=== PATIENT | male | born 1935 | race Caucasian/White ===

== ENCOUNTER 2016-07-23 13:18 | Observation (INO) | payer MEDICARE, MEDICAID ==
[~2016-07-23] VITALS: Ht 182.9 cm; Wt 62.6 kg
--- NOTE | 2016-07-23 14:13 | REP ---
Clinical: Nonacute cerebrovascular accident. Comparison: 10/23/2012. Findings: Age-related atrophy and microvascular ischemic changes with periventricular leukomalacia is appreciated. The ventricles and sulci are symmetric. Silver-white differentiation is maintained. There is no evidence for acute intracranial hemorrhage, mass/mass effect, pathology or infarction. No extra-axial fluid collection. Calvarium is intact. Paranasal sinuses and mastoid air cells are clear. Impression: Age related atrophy and microvascular ischemic changes. No acute intracranial hemorrhage, infarction, or mass/mass effect. Signed by Jonnie Callejas MD 07/23/2016 02:05 P
--- NOTE | 2016-07-23 14:17 | REP ---
Clinical: Cerebrovascular accident. Comparison: 10/23/2012 . Findings: The mediastinum and cardiac silhouette are stable and within normal limits for portable technique. Moderate hiatal hernia again appreciated. The lung santoyo are clear without acute consolidation, effusion, or pneumothorax. Skeletal structures are intact. Impression: Moderate hiatal hernia. No acute cardiopulmonary process appreciated. Signed by Jnonie Callejas MD 07/23/2016 02:09 P
[2016-07-23 14:43] LABS: BASO % 0.6 % (0.0-1.0); EOS % 0.3 % (0.0-3.0); LARGE UNSTAINED CELL # 0.2 K/mm3 (0.0-0.4); LARGE UNSTAINED CELL % 2.5 % (0.0-4.0); LYMPH # 0.9 K/mm3 (1.5-4.5); LYMPH % 10.4 % (24.0-44.0); MEAN CORPUSCULAR HEMOGLOBIN 31.3 pg (27.0-33.0); MEAN CORPUSCULAR HGB CONC 32.5 g/dl (32.0-36.5); MEAN CORPUSCULAR VOLUME 96.3 fl (80.0-96.0); MONO # 0.8 K/mm3 (0.0-0.8); MONO % 11.4 % (0.0-5.0); NEUTROPHILS # 5.6 K/mm3 (1.8-7.7); NEUTROPHILS % 74.9 % (36.0-66.0); PLATELET COUNT, AUTOMATED 231 k/mm3 (150-450); RED CELL DISTRIBUTION WIDTH 15.2 % (11.5-14.5); WHITE BLOOD COUNT 7.4 K/mm3 (4.0-10.0)
[2016-07-23 14:49] LABS: INR 1.7
[2016-07-23 15:08] LABS: ALBUMIN 3.7 GM/DL (3.2-5.2); ALBUMIN/GLOBULIN RATIO 0.95 (1.00-1.93); ALKALINE PHOSPHATASE 85 U/L (45-117); ALT/SGPT 33 U/L (12-78); ANION GAP 8 MEQ/L (8-16); AST/SGOT 34 U/L (15-37); BILIRUBIN,DIRECT 0.1 MG/DL (0.0-0.2); BILIRUBIN,TOTAL 0.3 MG/DL (0.2-1.0); BLOOD UREA NITROGEN 23 MG/DL (7-18); CALCIUM LEVEL 8.2 MG/DL (8.8-10.2); CARBON DIOXIDE LEVEL 29 MEQ/L (21-32); CHLORIDE LEVEL 101 MEQ/L (98-107); CREATININE FOR GFR 1.15 MG/DL (0.70-1.30); GLOMERULAR FILTRATION RATE > 60.0 (>35); GLUCOSE, FASTING 106 MG/DL (83-110); POTASSIUM SERUM 3.8 MEQ/L (3.5-5.1); SODIUM LEVEL 138 MEQ/L (136-145); TOTAL PROTEIN 7.6 GM/DL (6.4-8.2)
[2016-07-23] MEDS ORDERED: ENAL5TAB PO (16:47)
[2016-07-23] MEDS ORDERED: LANS30CA PO (16:47)
[2016-07-23] MEDS ORDERED: ZOCO40TA PO (16:47)
[2016-07-23] MEDS ORDERED: ACET50TAOT PO (16:47)
[2016-07-23] MEDS ORDERED: COUM1TAB17 PO (16:47)
[2016-07-23] MEDS ORDERED: HYDR12CA PO (16:47)
[2016-07-23] MEDS ORDERED: NS 1,000 ML IV SCH (16:53)
[2016-07-23] MEDS ORDERED: ONDANSETRON 4MG/2ML VIAL (J2405) IV PRN (17:00)
[2016-07-23] MEDS ORDERED: ACETAMINOPHEN TAB 650MG DOSE (2X325MG) PO PRN (17:00)
--- NOTE | 2016-07-23 17:14 | HPEPDOC ---
General Date of Admission 07/23/16 Chief Complaint The patient is a 81-year-old male admitted with a reason for visit of Syncope. 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 According to the patient's family who provided the extent of the history due to the patient's underlying dementia, the patient was helping out a family friend vacuuming and doing assorted chores around a facility when he suddenly became weak and less responsive. According to the family friend who previously worked as an EMT, the patient was awake the whole time and was able to move all extremities, however he appeared weak and fatigued. According to the patient's daughter, the patient has been dealing with sinus and upper respiratory tract congestion over the last 48 hours. She states that the patient was complaining of some generalized muscle aches and cramps. He was also complaining of subjective fevers and chills during this time. Apparently there are other family friends, and work associates who had similar symptoms. At baseline, the patient lives in a subsidized housing living facility, and is able to ambulate without any assistive device, and is able to complete his activities of daily living independently. The daughter states that she does drop by periodically to cook for her father and make sure things are in order, but otherwise he maintains himself independently. At this time, according to the patient's daughter, the patient has not had any complaints of chest pain, palpitations, abdominal pain, difficulty or burning with urination, or any nausea/vomiting/diarrhea. In the ER, the patient's EKG was noted to be in sinus rhythm, and a CT scan of the head as well as a chest x-ray revealed no acute abnormalities. The patient will be admitted to the hospitalist service for further evaluation and management of a near syncopal episode. Home Medications Scheduled Enalapril Maleate (Enalapril Maleate) 5 Mg Tab 5 MG PO DAILY (Reported) Lansoprazole (Lansoprazole) 30 Mg Cap 30 MG PO DAILY (Reported) Oseltamivir Phosphate (Tamiflu) 75 Mg Cap 75 MG PO BID Simvastatin - High Dose (Zocor) 40 Mg Tab 40 MG PO DAILY (Reported) Warfarin Sod (Coumadin) 5 Mg Tab 5 MG PO DAILY (Reported) Scheduled PRN Acetaminophen (Acetaminophen) 500 Mg Tab 500 MG PO PRN PAIN (Reported) Allergies Coded Allergies: No Known Allergies (Verified , 01/26/03) Past Medical History Medical History As noted in HPI Family History Significant Family History: No pertinent family hx Social History * Smoker: non-smoker Alcohol: denies Drugs: denies Social History As noted in HPI. Review of Symptoms Other systems 10 point review of systems negative unless otherwise noted in HPI Physical Examination ENT Exam: Positive: Atraumatic, Mucous membr. moist/pink Chest Exam: Positive: Clear to auscultation, Normal air movement Heart Exam: Positive: Normal S1, Normal S2, Rate Normal Telemetry: Positive: No significant arrhythmia, Sinus Abdomen Exam: Positive: Soft, Negative: Tenderness Extremity Exam: Negative: Edema, Tenderness Vital Signs As listed in EMR Laboratory Data Labs 24H Laboratory Tests 2 07/23/16 14:28: Acetaminophen Level < 2.0L, Aspartate Amino Transf (AST/SGOT) 34, Alanine Aminotransferase (ALT/SGPT) 33, Alkaline Phosphatase 85, Total Bilirubin 0.3, Direct Bilirubin 0.1, Albumin 3.7, Albumin/Globulin Ratio 0.95L, Anion Gap 8, White Blood Count 7.4, Red Blood Count 3.84L, Hemoglobin 12.0L, Hematocrit 37.0L , Mean Corpuscular Volume 96.3H, Mean Corpuscular Hemoglobin 31.3, Mean Corpuscular Hemoglobin Concent 32.5, Red Cell Distribution Width 15.2H, Platelet Count 231, Neutrophils (%) (Auto) 74.9H, Lymphocytes (%) (Auto) 10.4L, Monocytes (%) (Auto) 11.4H, Eosinophils (%) (Auto) 0.3, Basophils (%) (Auto) 0.6 , Neutrophils # (Auto) 5.6, Lymphocytes # (Auto) 0.9L, Monocytes # (Auto) 0.8, Eosinophils # (Auto) 0.0, Basophils # (Auto) 0.0, Calcium Level 8.2L, Creatine Kinase MB 3.3, Creatine Kinase MB Relative Index 1.75, Glomerular Filtration Rate > 60.0, Large Unclassified Cells # 0.2, Large Unclassified Cells % 2.5, Prothromb Time International Ratio 1.70, Prothrombin Time 20.1H, Salicylates Level < 1.7L, Thyroid Stimulating Hormone (TSH) 0.439, Total Creatine Kinase 188 , Total Protein 7.6, Troponin I < 0.02 CBC/BMP Laboratory Tests 07/23/16 14:28 Red Blood Count 3.84 L, Mean Corpuscular Volume 96.3 H, Mean Corpuscular Hemoglobin 31.3, Mean Corpuscular Hemoglobin Concent 32.5, Red Cell Distribution Width 15.2 H, Neutrophils (%) (Auto) 74.9 H, Lymphocytes (%) (Auto ) 10.4 L, Monocytes (%) (Auto) 11.4 H, Eosinophils (%) (Auto) 0.3, Basophils (% ) (Auto) 0.6, Neutrophils # (Auto) 5.6, Lymphocytes # (Auto) 0.9 L, Monocytes # (Auto) 0.8, Eosinophils # (Auto) 0.0, Basophils # (Auto) 0.0 Assessment/Plan Problems: (1) Near syncope Status: Acute Response to Treatment: Stable Problem Text: Possibly secondary to weakness/lethargy from viral upper respiratory tract infection CT scan of the head and chest x-ray unremarkable EKG noted to be in normal sinus rhythm, initial troponin negative, we'll continue to trend serial troponins 2-D echocardiogram and ultrasound of the carotids ordered Monitor on telemetry Gentle IV fluid hydration Urinalysis/urine cultures ordered, respiratory panel ordered Physical therapy consulted (2) History of CVA (cerebrovascular accident) without residual deficits Status: Chronic Response to Treatment: Stable Problem Text: On Coumadin-INR noted to be subtherapeutic at 1.7, however the patient did not take his Coumadin dose today. We will give him his dose today and recheck INR levels in the morning Continue statin (3) Hypertension Status: Chronic Response to Treatment: Stable Problem Text: We will hold the patient's hydrochlorothiazide, ALLY inhibitor as the patient does appear to be dehydrated, with a slight elevation in serum creatinine Gentle IV fluid hydration (4) Dementia Status: Chronic Response to Treatment: Stable Plan / VTE VTE Prophylaxis Ordered?: Yes DARCIE LUNA MD Jul 23, 2016 17:14
[2016-07-23 18:18] LABS: CONTROL LINE INT CTR LINE PRESENT; METHADONE URINE NEGATIVE (NEGATIVE); TRICYCLIC ANTIDEPRESS URINE NEGATIVE (NEGATIVE)
--- NOTE | 2016-07-23 18:33 | REP ---
Clinical: Near-syncopal episode. Technique: Silver scale and color Doppler evaluation using linear high frequency transducer Findings: Two-dimensional silver scale and color images demonstrate smooth intimal thickening to the common carotid arteries with small amount of mixed atheromatous plaques and the carotid bulbs extending to the internal carotid arteries bilaterally. Normal laminar flow is appreciated without turbulence or narrowing. Color Doppler interrogation demonstrates normal arterial wave patterns and velocities with no mild spectral broadening. Normal flow direction is appreciated in the bilateral vertebral arteries. RIGHT (cm/s) LEFT (cm/s) ICA peak systolic velocity 60.1 78.4 ICA diastolic velocity 24.3 29.3 ECA peak systolic velocity 134.9 110.7 CCA peak systolic velocity 80.7 86.0 ICA/CCA ratio 0.74 0.91 Impression: No hemodynamically significant areas of narrowing or stenosis appreciated. Based on set standards narrowing falls within the less than 50% range. Signed by Jonnie Callejas MD 07/23/2016 06:25 P
--- NOTE | 2016-07-23 18:49 | EDDOCDS ---
Nurse's Notes [facility] Name: Jorge Alberto Yip Age: 81 yrs Sex: Male : 1935 Arrival Date: 07/23/2016 Time: 13:18 Bed 9 Private MD: Diagnosis: Transient cerebral ischemic attack, unspecified;Unspecified dementia Presentation: 07/23 13:36 Presenting complaint: Friend states: became weak this am while cleaning \T\ [facility]. found bcj by staff sitting in chair. pt does not recall incident. denies headache chest pain SOB resp distress on arrival. denies recent fall head injury. Adult Sepsis Screening: The patient does not have new or worsening altered mentation. Patient's respiratory rate is less than 22. Systolic blood pressure is greater than 100. Patient has a qSOFA score of 0- Negative Sepsis Screen. Suicide/Homicide risk assessment- the patient denies having any suicidal and/or homicidal ideations and does not present with any other emotional, behavioral or mental health complaints. Status: Patient is not a food service substitute or dependent. Transition of care: patient was not received from another setting of care. 13:36 Acuity: ODETTE Level 3 bcj 13:36 Method Of Arrival: Ambulance bcj Triage Assessment: 13:49 General: Appears in no apparent distress, comfortable, Behavior is cooperative. Pain: bcj Denies pain. Neurological: Level of Consciousness is awake, alert, Oriented to person, place, time, Flanging Machine Operator are equal bilaterally Moves all extremities. Speech is normal, Facial symmetry appears normal, Denies weakness dizziness, numbness headache. Cardiovascular: Rhythm is sinus rhythm Chest pain is denied. Respiratory: Airway is patent Respiratory effort is even, unlabored, Respiratory pattern is regular. Derm: Skin is pink, warm & dry. Historical: - Allergies: no known allergies; - Home Meds: 1. Coumadin 5 mg Oral tab 1 tab once daily 2. Zocor 40 mg Oral tab 1 tab once daily 3. Prevacid 30 mg Oral cpDR 1 cap once daily 4. enalapril maleate 5 mg Oral tab 1 tab once daily 5. hydrochlorothiazide 12.5 mg Oral tab 1 tab once daily - PMHx: CVA; Hypertension; GERD; - PSHx: none; - Social history: Smoking status: Patient states former smoker of tobacco. No barriers to communication noted, The patient speaks fluent Pakistani, Speaks appropriately for age. - Family history: Not pertinent. - : The pt / caregiver states he / she is on anticoagulants: coumadin. Home medication list is obtained from the patient. - Exposure Risk Screening:: None identified. Screenin:35 Screening information is obtained from the patient. Fall risk: No risks identified. bcj Assistance ADL's: requires no assistance with activities of daily living. Abuse/DV Screen: The patient / caregiver reports he/she is: not in a situation that causes fear, pain or injury. Nutritional screening: No deficits noted. Advance Directives: There is no active DNR order. home support is adequate. Assessment: 14:35 General: Appears in no apparent distress, comfortable, Behavior is cooperative. Pain: bcj Denies pain. Neurological: Level of Consciousness is awake, alert, Oriented to person, place, time, Flanging Machine Operator are equal bilaterally Moves all extremities. Speech is normal, Facial symmetry appears normal, Pupils are PERRLA. Cardiovascular: Rhythm is sinus rhythm. Derm: Skin is pink, warm & dry. pale. 16:30 General: Appears in no apparent distress, comfortable, Behavior is cooperative. Pain: bcj Denies pain. Neurological: Level of Consciousness is awake, alert, Oriented to person, place, time, Speech is normal, Facial symmetry appears normal. Cardiovascular: Rhythm is sinus rhythm. Derm: Skin is pink, warm & dry. 18:29 General: Appears in no apparent distress, comfortable, Behavior is cooperative. Pain: bcj Denies pain. Neurological: Level of Consciousness is awake, alert, Oriented to person, place, time, Flanging Machine Operator are equal bilaterally Moves all extremities. Speech is normal. Cardiovascular: Rhythm is sinus rhythm. Derm: Skin is intact, Skin is pink, warm & dry. Vital Signs: 13:28 BP 151 / 78 (auto/); bcj 13:29 Pulse 66 MON; Pulse Ox 94% ; bcj 13:31 BP 151 / 78; Pulse 65; Resp 20; Temp 100.5(O); Pulse Ox 95% ; Weight 68.04 kg; Height 5 jlf ft. 2 in. (157.48 cm); Pain 0/10; 13:43 BP 120 / 68 (auto/); bcj 13:43 Pulse 66 MON; Pulse Ox 93% ; bcj 14:10 BP 147 / 73 (auto/); bcj 14:11 Pulse 66 MON; Pulse Ox 92% ; bcj 14:13 BP 138 / 69 (auto/); bcj 14:13 Pulse 66 MON; Pulse Ox 93% ; bcj 14:28 BP 142 / 79 (auto/); bcj 14:28 Pulse 66 MON; Pulse Ox 95% ; bcj 14:43 BP 127 / 67 (auto/); bcj 14:43 Pulse 68 MON; Pulse Ox 93% ; bcj 14:58 BP 127 / 70 (auto/); bcj 14:58 Pulse 68 MON; Pulse Ox 92% ; bcj 15:13 BP 135 / 75 (auto/); bcj 15:13 Pulse 68 MON; Pulse Ox 90% ; bcj 15:28 BP 142 / 78 (auto/); bcj 15:28 Pulse 68 MON; Pulse Ox 95% ; bcj 15:43 BP 142 / 76 (auto/); bcj 15:43 Pulse 68 MON; Pulse Ox 98% ; bcj 15:58 BP 139 / 72 (auto/); bcj 15:58 Pulse 66 MON; Pulse Ox 92% ; bcj 16:13 BP 148 / 72 (auto/); bcj 16:13 Pulse 68 MON; Pulse Ox 93% ; bcj 16:28 BP 145 / 73 (auto/); bcj 16:28 Pulse 68 MON; Pulse Ox 93% ; bcj 17:23 BP 144 / 75; Pulse 68; Resp 16; Temp 98.5(TE); Pulse Ox 95% on R/A; Pain 0/10; bcj 13:31 Body Mass Index 27.44 (68.04 kg, 157.48 cm) [facility] Vitals: 13:49 Glucose Measurement D-stick done by EMS FS BS 14. Log In Time N/A - ambulance arrival. j 14:35 Refer to monitor trend for complete vital signs trends. [facility] ED Course: 13:19 Patient visited by Lorena Foster Printing Machine Operator. deg 13:[address] [facility] deg 13:29 No apparent distress. Resting quietly. Awaiting bed assignment. bcj 13:29 IV is intact. bcj 13:31 Patient visited by Kaya Hammonds PCA. jlf 13:31 Patient visited by Kaya Hammonds PCA. jlf 13:31 Patient moved to [facility] 13:32 [facility] ke 13:32 Patient visited by Christiano Noe FNP. ke 13:32 Patient visited by Christiano Noe FNP. ke 13:47 Triage Initiated bcj 13:52 Patient visited by Tej Giles RN. bcj 14:11 Patient visited by Kaya Hammonds PCA. jlf 14:12 Patient visited by Kaya Hammonds PCA. jlf 14:12 EKG done. (by ED staff). Reviewed by Christiano ZHOU. jlf 14:33 CT Head Without Contrast Returned. EDMS 14:33 Chest, 1 View Returned. EDMS 14:35 No apparent distress. Resting quietly. awaiting re-evaluation by ER physician. bcj 14:35 The patient / caregiver is instructed regarding the plan of care and ED course. bcj 14:35 Maintain field IV. Site clean & dry. Gauge & site: 20ga LAC. IV. bcj 14:38 Patient visited by Tej Giles RN. bcj 14:39 PT/INR Sent. bcj 15:07 Patient visited by Kaya Hammonds PCA. jlf 15:31 [facility] Payment Agreement was scanned into [employer] and attached to record. [email or web address] 15:35 Patient visited by Christiano Noe FNP. ke 15:35 Patient name changed from Jorge Alberto\S\\S\[place]\S\ to Jorge Alberto\S\ \S\[place]. EDMS 15:51 Patient visited by Kaya Hammonds PCA. jlf 15:57 Hussein Hadley is Hospitalizing Provider. ke 16:38 Patient visited by Tej Giles RN. bcj 17:27 Patient visited by Tej Giles, PRICILLA. bcj 17:49 Patient moved to Ultrasound hgl 18:13 Patient moved to 9 hgl 18:29 No apparent distress. Resting quietly. Awaiting bed assignment. bcj 18:29 bus driver/monitor on. Pulse ox on. NIBP on. bcj 18:32 Patient visited by Tej Giles RN. bcj 18:32 No procedures done that require assistance. bcj 18:34 Duplex,carotid (complete) Returned. EDMS Order Results: Lab Order: Acetaminophen Level; SPEC'M 07/23/16 14:28 Test: ACETAMINOPHEN LEVEL; Value: < 2.0; Range: 10.0-30.0; Abnormal: Below low normal; Units: UG/ML; Status: F Lab Order: CBC with Diff; SPEC'M 07/23/16 14:28 Test: WHITE BLOOD COUNT; Value: 7.4; Range: 4.0-10.0; Units: K/mm3; Status: F Test: RED BLOOD COUNT; Value: 3.84; Range: 4.30-6.10; Abnormal: Below low normal; Units: M/mm3; Status: F Test: HEMOGLOBIN; Value: 12.0; Range: 14.0-18.0; Abnormal: Below low normal; Units: g/dl; Status: F Test: HEMATOCRIT; Value: 37.0; Range: 42.0-52.0; Abnormal: Below low normal; Units: %; Status: F Test: MEAN CORPUSCULAR VOLUME; Value: 96.3; Range: 80.0-96.0; Abnormal: Above high normal; Units: fl; Status: F Test: MEAN CORPUSCULAR HEMOGLOBIN; Value: 31.3; Range: 27.0-33.0; Units: pg; Status: F Test: MEAN CORPUSCULAR HGB CONC; Value: 32.5; Range: 32.0-36.5; Units: g/dl; Status: F Test: RED CELL DISTRIBUTION WIDTH; Value: 15.2; Range: 11.5-14.5; Abnormal: Above high normal; Units: %; Status: F Test: PLATELET COUNT, AUTOMATED; Value: 231; Range: 150-450; Units: k/mm3; Status: F Test: NEUTROPHILS %; Value: 74.9; Range: 36.0-66.0; Abnormal: Above high normal; Units: %; Status: F Test: LYMPH %; Value: 10.4; Range: 24.0-44.0; Abnormal: Below low normal; Units: %; Status: F Test: MONO %; Value: 11.4; Range: 0.0-5.0; Abnormal: Above high normal; Units: %; Status: F Test: EOS %; Value: 0.3; Range: 0.0-3.0; Units: %; Status: F Test: BASO %; Value: 0.6; Range: 0.0-1.0; Units: %; Status: F Test: LARGE UNSTAINED CELL %; Value: 2.5; Range: 0.0-4.0; Units: %; Status: F Test: NEUTROPHILS #; Value: 5.6; Range: 1.8-7.7; Units: K/mm3; Status: F Test: LYMPH #; Value: 0.9; Range: 1.5-4.5; Abnormal: Below low normal; Units: K/mm3; Status: F Test: MONO #; Value: 0.8; Range: 0.0-0.8; Units: K/mm3; Status: F Test: EOS #; Value: 0.0; Range: 0.0-0.50; Units: K/mm3; Status: F Test: BASO #; Value: 0.0; Range: 0.0-0.2; Units: K/mm3; Status: F Test: LARGE UNSTAINED CELL #; Value: 0.2; Range: 0.0-0.4; Units: K/mm3; Status: F Lab Order: Cardiac Injury Profile; SPEC'M 07/23/16 14:28 Test: CPK CREATINE PHOSPHOKINASE; Value: 188; Range: 39-308; Units: U/L; Status: F Test: CK-MB VALUE MASS; Value: 3.3; Range: 0.0-3.6; Units: NG/ML; Status: F Test: MB/CK RELATIVE INDEX; Value: 1.75; Range: < OR =4; Status: F Test Note: ; DIAGNOSIS CRITERIA MMB ng/ml Relative Index (RI) NON-AMI < or = 5 N/A SILVER ZONE > 5 < or = 4 AMI > 5 > 4 Lab Order: Drug Eval Toxicology ED Only; SPEC'M 07/23/16 17:32 Test: AMPHETAMINES LEVEL URINE; Value: NEGATIVE; Range: NEGATIVE; Status: F Test: BARBITURATES URINE; Value: NEGATIVE; Range: NEGATIVE; Status: F Test: BENZODIAZEPINES URINE; Value: NEGATIVE; Range: NEGATIVE; Status: F Test: CANNABINOIDS URINE; Value: NEGATIVE; Range: NEGATIVE; Status: F Test: COCAINE METABOLITE URINE; Value: NEGATIVE; Range: NEGATIVE; Status: F Test: METHADONE URINE; Value: NEGATIVE; Range: NEGATIVE; Status: F Test: OPIATES URINE; Value: NEGATIVE; Range: NEGATIVE; Status: F Test: TRICYCLIC ANTIDEPRESS URINE; Value: NEGATIVE; Range: NEGATIVE; Status: F Test Note: ; ALL PRESUMPTIVE POSITIVE FINDINGS ARE UNCONFIRMED NORMAL VALUES THRESHOLD IN NG/ML AMPHETAMINES 1000 METHAMPHETAMINES 1000 BARBITURATES 300 BENZODIAZEPINES 300 CANNABINOIDS (THC) 50 COCAINE METABOLITE 300 METHADONE 300 OPIATES 300 PHENCYCLIDINE 25 TRICYCLIC ANTIDEPRESSANTS 1000 RESULTS ARE FOR MEDICAL PURPOSES ONLY. ALL URINE SPECIMENS WILL BE SAVED FOR 3 DAYS. IF CONFIRMATION OF A PRESUMPTIVE POSTIVE SCREEN RESULT IS DESIRED, CALL CHEMISTRY ([phone]) AND REQUEST URINE TO BE SENT TO REFERENCE LAB. FOR A LIST OF CLOSELY RELATED COMPOUNDS PLEASE CALL THE LAB. Lab Order: Liver Profile; SPEC'M 07/23/16 14:28 Test: AST/SGOT; Value: 34; Range: 15-37; Units: U/L; Status: F Test: ALT/SGPT; Value: 33; Range: 12-78; Units: U/L; Status: F Test: ALKALINE PHOSPHATASE; Value: 85; Range: 45-117; Units: U/L; Status: F Test: BILIRUBIN,TOTAL; Value: 0.3; Range: 0.2-1.0; Units: MG/DL; Status: F Test: BILIRUBIN,DIRECT; Value: 0.1; Range: 0.0-0.2; Units: MG/DL; Status: F Test: TOTAL PROTEIN; Value: 7.6; Range: 6.4-8.2; Units: GM/DL; Status: F Test: ALBUMIN; Value: 3.7; Range: 3.2-5.2; Units: GM/DL; Status: F Test: ALBUMIN/GLOBULIN RATIO; Value: 0.95; Range: 1.00-1.93; Abnormal: Below low normal; Status: F Lab Order: MED Profile; SPEC'M 07/23/16 14:28 Test: GLUCOSE, FASTING; Value: 106; Range: 83-110; Units: MG/DL; Status: F Test: BLOOD UREA NITROGEN; Value: 23; Range: 7-18; Abnormal: Above high normal; Units: MG/DL; Status: F Test: CREATININE FOR GFR; Value: 1.15; Range: 0.70-1.30; Units: MG/DL; Status: F Test: GLOMERULAR FILTRATION RATE; Value: > 60.0; Range: >35; Status: F Test: SODIUM LEVEL; Value: 138; Range: 136-145; Units: MEQ/L; Status: F Test: POTASSIUM SERUM; Value: 3.8; Range: 3.5-5.1; Units: MEQ/L; Status: F Test: CHLORIDE LEVEL; Value: 101; Range: 98-107; Units: MEQ/L; Status: F Test: CARBON DIOXIDE LEVEL; Value: 29; Range: 21-32; Units: MEQ/L; Status: F Test: ANION GAP; Value: 8; Range: 8-16; Units: MEQ/L; Status: F Test: CALCIUM LEVEL; Value: 8.2; Range: 8.8-10.2; Abnormal: Below low normal; Units: MG/DL; Status: F Test Note: ; Units are mL/min/1.73 m2 Chronic Kidney Disease Staging per NKF: Stage I & II GFR >=60 Normal to Mildly Decreased Stage III GFR 30-59 Moderately Decreased Stage IV GFR 15-29 Severely Decreased Stage V GFR <15 Very Little GFR Left ESRD GFR <15 on BANK RUNNER Lab Order: Salicylate Level; SPEC'M 07/23/16 14:28 Test: SALICYLATE LEVEL; Value: < 1.7; Range: 5.0-30.0; Abnormal: Below low normal; Units: MG/DL; Status: F Lab Order: Thyroid Stimulating Hormone; SPEC'M 07/23/16 14:28 Test: THYROID STIMULATING HORMONE; Value: 0.439; Range: 0.358-3.740; Units: uIU/ML; Status: F Lab Order: Troponin; SPEC'M 07/23/16 14:28 Test: TROPONIN I; Value: < 0.02; Range: < 0.10; Units: NG/ML; Status: F Test Note: ; Troponin I Reference Interval for [employer] LOCI: 99th Percentile= 0.00-0.045 ng/ml Risk Stratification: <= 0.10 ng/ml Decreased Risk for Adverse Clinical Events. 0.10-1.50 ng/ml Increased Risk for Adverse Clinical Events. Evaluation of additional criterion and/or repeat testing in 2-6 hours is suggested to rule out myocardial damage. >= 1.50 ng/ml Indicative of Myocardial Injury. Lab Order: Urinalysis; SPEC'M 07/23/16 17:32 Test: APPEARANCE, URINE; Value: HAZY; Range: CLEAR; Status: F Test: COLOR, URINE; Value: YELLOW; Range: YELLOW; Status: F Test: PH,URINE; Value: 5.0; Range: 5.0-9.0; Units: UNITS; Status: F Test: SPECIFIC GRAVITY URINE AUTO; Value: 1.023; Range: 1.002-1.035; Status: F Test: PROTEIN, URINE AUTO; Value: NEGATIVE; Range: NEGATIVE; Units: mg/dL; Status: F Test: GLUCOSE, URINE (UA) AUTO; Value: NEGATIVE; Range: NEGATIVE; Units: mg/dL; Status: F Test: KETONE, URINE AUTO; Value: 1+; Range: NEGATIVE; Abnormal: Above high normal; Units: mg/dL; Status: F Test: UROBILINOGEN, URINE AUTO; Value: 2.0; Range: 0.0-2.0; Abnormal: Above high normal; Units: mg/dL; Status: F Test: BILIRUBIN, URINE AUTO; Value: NEGATIVE; Range: NEGATIVE; Status: F Test: NITRITE, URINE AUTO; Value: NEGATIVE; Range: NEGATIVE; Status: F Test: LEUKOCYTE ESTERASE, URINE AUTO; Value: NEGATIVE; Range: NEGATIVE; Status: F Test: BLOOD, URINE BLOOD; Value: 1+; Range: NEGATIVE; Abnormal: Above high normal; Status: F Test: WBC, URINE AUTO; Value: 1; Range: 0-3; Units: /HPF; Status: F Test: RBC, URINE AUTO; Value: 19; Range: 0-3; Abnormal: Above high normal; Units: /HPF; Status: F Test: BACTERIA, URINE AUTO; Value: NEGATIVE; Range: NEGATIVE; Status: F Test: SQUAMOUS EPITHELIAL CELL UR AU; Value: 0; Range: 0-6; Units: /HPF; Status: F Test: MUCUS, URINE; Value: SMALL; Range: NEGATIVE; Status: F Test: HYALINE CAST, URINE AUTO; Value: 0; Range: 0-1; Units: /LPF; Status: F Lab Order: PT/INR; SPEC'M 07/23/16 14:28 Test: PROTHROMBIN TIME; Value: 20.1; Range: 12.3-14.5; Abnormal: Above high normal; Units: SECONDS; Status: F Test: INR; Value: 1.70; Status: F Test Note: ; THERAPUTIC HUMAN INR VALUES INDICATIONS NORMAL RANGES PROPHYLAXIS/TREATMENT OF: VENOUS THROMBOSIS 2.0-3.0 PULMONARY EMBOLISM 2.0-3.0 PREVENTION OF SYSTEMIC EMBOLISM FROM: TISSUE HEART VALVES 2.0-3.0 ACUTE MYOCARDIAL INFARCTION 2.0-3.0 VALVULAR HEART DISEASE 2.0-3.0 ATRIAL FIBRILLATION 2.0-3.0 MECHANICAL VALVES(HIGH RISK) 2.5-3.5 RECURRENT MYOCARDIAL INFARCTION 2.5-3.5 Radiology Order: CT Head Without Contrast Test: CT Head Without Contrast REASON FOR EXAMINATION: CVA >4.5hrs; Clinical: Nonacute cerebrovascular accident.; ; Comparison: 10/23/2012.; ; Findings:; Age-related atrophy and microvascular ischemic changes with periventricular; leukomalacia is appreciated. The ventricles and sulci are symmetric. Silver-white; differentiation is maintained. There is no evidence for acute intracranial; hemorrhage, mass/mass effect, pathology or infarction. No extra-axial fluid; collection. Calvarium is intact. Paranasal sinuses and mastoid air cells are; clear.; ; Impression:; Age related atrophy and microvascular ischemic changes.; No acute intracranial hemorrhage, infarction, or mass/mass effect.; ; ; Signed by; Jonnie Callejas MD 07/23/2016 02:05 P; Radiology Order: Chest, 1 View Test: Chest, 1 View REASON FOR EXAMINATION: CVA >4.5hrs; Clinical: Cerebrovascular accident.; ; Comparison: 10/23/2012 .; ; Findings:; The mediastinum and cardiac silhouette are stable and within normal limits for; portable technique. Moderate hiatal hernia again appreciated. The lung santoyo; are clear without acute consolidation, effusion, or pneumothorax. Skeletal; structures are intact.; ; Impression:; Moderate hiatal hernia.; No acute cardiopulmonary process appreciated.; ; ; Signed by; Jonnie Callejas MD 07/23/2016 02:09 P; Radiology Order: Duplex,carotid (complete) Test: Duplex,carotid (complete) REASON FOR EXAMINATION: Near Syncope; Clinical: Near-syncopal episode.; ; Technique: Silver scale and color Doppler evaluation using linear high frequency; transducer; ; Findings:; Two-dimensional silver scale and color images demonstrate smooth intimal thickening; to the common carotid arteries with small amount of mixed atheromatous plaques; and the carotid bulbs extending to the internal carotid arteries bilaterally.; Normal laminar flow is appreciated without turbulence or narrowing. Color; Doppler interrogation demonstrates normal arterial wave patterns and velocities; with no mild spectral broadening. Normal flow direction is appreciated in the; bilateral vertebral arteries.; ; RIGHT (cm/s) LEFT (cm/s); ; ICA peak systolic velocity 60.1 78.4; ICA diastolic velocity 24.3 29.3; ECA peak systolic velocity 134.9 110.7; CCA peak systolic velocity 80.7 86.0; ICA/CCA ratio 0.74 0.91; ; Impression:; No hemodynamically significant areas of narrowing or stenosis appreciated.; Based on set standards narrowing falls within the less than 50% range.; ; ; Signed by; Jonnie Callejas MD 07/23/2016 06:25 P; Outcome: 15:58 Decision to Hospitalize by Provider. arben 18:29 Discharge Assessment: patient administered narcotics - no. The following High Risk [facility] Discharge criteria are identified: None. Admitted to PCU accompanied by nurse, accompanied by tech, via stretcher, on monitor. Condition: stable. CT Study completed. Ultrasound Study completed. Admission hand-off: Report Faxed. Property :Personal belongings accompany Pt. 18:48 Patient left the ED. dy Signatures: Dispatcher [employer] EDLorena Saldaña, Printing Machine Operator Unit deg Tej Giles RN RN bcj Youngs, David, RN RN dy Elsner, Karl, Willard Muse Jordain, PCA PCA jlf Sorenson, Kimberly, Reg Reg [email or web address] CLAUDETTE
--- NOTE | 2016-07-23 18:49 | EDDOCDS ---
Physician Documentation [facility] Name: Jorge Alberto Yip Age: 81 yrs Sex: Male : 1935 Arrival Date: 07/23/2016 Time: 13:18 Bed 9 Private MD: Disposition: 07/23/16 15:58 Hospitalization ordered by Hussein Hadley for Inpatient Admission. Preliminary diagnosis are Transient cerebral ischemic attack, unspecified, Unspecified dementia. - Bed requested for PCU. - Status is Inpatient Admission. dy - Condition is Stable. - Problem is an acute exacerbation. - Symptoms are unchanged. Historical: - Allergies: no known allergies; - Home Meds: 1. Coumadin 5 mg Oral tab 1 tab once daily 2. Zocor 40 mg Oral tab 1 tab once daily 3. Prevacid 30 mg Oral cpDR 1 cap once daily 4. enalapril maleate 5 mg Oral tab 1 tab once daily 5. hydrochlorothiazide 12.5 mg Oral tab 1 tab once daily - PMHx: CVA; Hypertension; GERD; - PSHx: none; - Social history: Smoking status: Patient states former smoker of tobacco. No barriers to communication noted, The patient speaks fluent Haitian, Speaks appropriately for age. - Family history: Not pertinent. - : The pt / caregiver states he / she is on anticoagulants: coumadin. Home medication list is obtained from the patient. - Exposure Risk Screening:: None identified. Vital Signs: 07/23 13:28 BP 151 / 78 (auto/); bcj 13:29 Pulse 66 MON; Pulse Ox 94% ; bcj 13:31 BP 151 / 78; Pulse 65; Resp 20; Temp 100.5(O); Pulse Ox 95% ; Weight 68.04 kg / 150 jlf lbs; Height 5 ft. 2 in. (157.48 cm); Pain 0/10; 13:43 BP 120 / 68 (auto/); bcj 13:43 Pulse 66 MON; Pulse Ox 93% ; bcj 14:10 BP 147 / 73 (auto/); bcj 14:11 Pulse 66 MON; Pulse Ox 92% ; bcj 14:13 BP 138 / 69 (auto/); bcj 14:13 Pulse 66 MON; Pulse Ox 93% ; bcj 14:28 BP 142 / 79 (auto/); bcj 14:28 Pulse 66 MON; Pulse Ox 95% ; bcj 14:43 BP 127 / 67 (auto/); bcj 14:43 Pulse 68 MON; Pulse Ox 93% ; bcj 14:58 BP 127 / 70 (auto/); bcj 14:58 Pulse 68 MON; Pulse Ox 92% ; bcj 15:13 BP 135 / 75 (auto/); bcj 15:13 Pulse 68 MON; Pulse Ox 90% ; bcj 15:28 BP 142 / 78 (auto/); bcj 15:28 Pulse 68 MON; Pulse Ox 95% ; bcj 15:43 BP 142 / 76 (auto/); bcj 15:43 Pulse 68 MON; Pulse Ox 98% ; bcj 15:58 BP 139 / 72 (auto/); bcj 15:58 Pulse 66 MON; Pulse Ox 92% ; bcj 16:13 BP 148 / 72 (auto/); bcj 16:13 Pulse 68 MON; Pulse Ox 93% ; bcj 16:28 BP 145 / 73 (auto/); bcj 16:28 Pulse 68 MON; Pulse Ox 93% ; bcj 17:23 BP 144 / 75; Pulse 68; Resp 16; Temp 98.5(TE); Pulse Ox 95% on R/A; Pain 0/10; bcj 13:31 Body Mass Index 27.44 (68.04 kg, 157.48 cm) [facility] MDM: 13:50 Stoker Erector/Pulse Ox/q 15 min VS ordered. ke 13:50 Accucheck ordered. ke 13:50 IV Saline Lock ordered. ke 13:50 Oxygen at 4L/Min NC or Home dosage ordered. ke 13:50 Rhythm Strip to chart ordered. ke 13:51 Acetaminophen Level Ordered. EDMS 13:51 CBC with Diff Ordered. EDMS 13:51 Cardiac Injury Profile Ordered. EDMS 13:51 Drug Eval Toxicology ED Only Ordered. EDMS 13:51 Liver Profile Ordered. EDMS 13:51 MED Profile Ordered. EDMS 13:52 Salicylate Level Ordered. EDMS 13:52 Thyroid Stimulating Hormone Ordered. EDMS 13:52 Troponin Ordered. EDMS 13:52 Urinalysis Ordered. EDMS 13:52 Urine Culture Ordered. EDMS 13:52 Chest, 1 View Ordered. EDMS 13:52 CT Head Without Contrast Ordered. EDMS 13:52 ECG WITH READING ER PHYS+CARDIAG ordered. EDMS 14:30 PT/INR Ordered. EDMS 15:31 Financial registration complete. [email or web address] 15:31 [facility] Payment Agreement was scanned into [employer] and attached to record. [email or web address] 15:38 Acetaminophen Level Reviewed. ke 15:38 CBC with Diff Reviewed. ke 15:38 Liver Profile Reviewed. ke 15:38 MED Profile Reviewed. ke 15:38 Salicylate Level Reviewed. ke 15:38 PT/INR Reviewed. ke 15:38 Cardiac Injury Profile Reviewed. ke 15:38 Thyroid Stimulating Hormone Reviewed. ke 15:38 Troponin Reviewed. ke 15:38 CT Head Without Contrast Reviewed. ke 15:38 Chest, 1 View Reviewed. ke 16:59 PHYSICAL THERAPY EVAL & TREAT ordered. EDMS 16:59 Duplex,carotid (complete) Ordered. EDMS 17:00 Admission / Observation Status ordered. EDMS 17:01 ECHOCARD,DOPPLER/COLOR FLOW ordered. EDMS 17:01 2 GRAM SODIUM DIET ordered. EDMS 17:01 TROPONIN Ordered. EDMS 17:01 RESPIRATORY PANEL Ordered. EDMS 17:11 BLOOD CULTURES Ordered. EDMS Signatures: Dispatcher [employer] EDMS Tej Giles, RN RN Cary Finley RN Almas Mckeon, RN RN Christiano Francis, INSPECTOR GOLF BALL INSPECTOR GOLF BALL Kristnie March, Reg Reg [email or web address] The chart was reviewed and I authenticate all verbal orders and agree with the evaluation and treatment provided.Attachments: 15:31 [facility] Payment Agreement [email or web address]
[2016-07-23 18:50] VITALS: BP 152/72
[2016-07-23 20:37] VITALS: BP 142/72
[2016-07-23] MEDS: WARFARIN SOD 5 MG TAB PO SCH (20:45)
[2016-07-23 23:27] VITALS: BP 148/64
[2016-07-24 05:11] VITALS: BP 142/67
[2016-07-24 05:22] LABS: BASO % 0.5 % (0.0-1.0); EOS % 0.2 % (0.0-3.0); LARGE UNSTAINED CELL # 0.2 K/mm3 (0.0-0.4); LARGE UNSTAINED CELL % 3.3 % (0.0-4.0); LYMPH # 1.3 K/mm3 (1.5-4.5); LYMPH % 26.3 % (24.0-44.0); MEAN CORPUSCULAR HEMOGLOBIN 31.9 pg (27.0-33.0); MEAN CORPUSCULAR HGB CONC 33.4 g/dl (32.0-36.5); MEAN CORPUSCULAR VOLUME 95.4 fl (80.0-96.0); MONO # 0.5 K/mm3 (0.0-0.8); MONO % 11.2 % (0.0-5.0); NEUTROPHILS # 2.6 K/mm3 (1.8-7.7); NEUTROPHILS % 58.4 % (36.0-66.0); PLATELET COUNT, AUTOMATED 205 k/mm3 (150-450); RED CELL DISTRIBUTION WIDTH 15.2 % (11.5-14.5); WHITE BLOOD COUNT 4.4 K/mm3 (4.0-10.0)
[2016-07-24 05:28] LABS: INR 1.69
[2016-07-24 05:38] LABS: ANION GAP 8 MEQ/L (8-16); BLOOD UREA NITROGEN 19 MG/DL (7-18); CALCIUM LEVEL 8.1 MG/DL (8.8-10.2); CARBON DIOXIDE LEVEL 26 MEQ/L (21-32); CHLORIDE LEVEL 104 MEQ/L (98-107); CREATININE FOR GFR 0.96 MG/DL (0.70-1.30); GLOMERULAR FILTRATION RATE > 60.0 (>35); GLUCOSE, FASTING 84 MG/DL (83-110); MAGNESIUM LEVEL 1.8 MG/DL (1.8-2.4); POTASSIUM SERUM 3.6 MEQ/L (3.5-5.1); SODIUM LEVEL 138 MEQ/L (136-145)
[2016-07-24 07:53] VITALS: BP 152/84
[2016-07-24] MEDS: PANTOPRAZOLE 20 MG TAB PO SCH (09:21)
[2016-07-24] MEDS: SIMVASTATIN 40 MG TAB PO SCH (09:21)
--- NOTE | 2016-07-24 10:01 | ECGEPIP ---
Stationary ECG Study [facility] - ED Test Date: 2016-07-23 Pat Name: KACY BETANCOURT Department: Room: - Gender: M Structures Assembler: : 1935 Requested By: AMANDA ZHOU Order Number: [id number] Reading MD: Claribel Monzon Measurements Intervals [place] Rate: 66 P: 47 OK: 194 QRS: 43 QRSD: 81 T: 38 QT: 370 QTc: 390 Interpretive Statements SINUS RHYTHM DELAYED R PROGRESSION LOW VOLTAGE LIMB NO PRIOR FOR COMPARISON Electronically Signed On 07-24-2016 10:01:22 EST by Claribel Monzon
[2016-07-24 12:00] VITALS: BP 136/57
[2016-07-24] MEDS: ENALAPRIL MALEATE 5 MG TAB PO SCH (12:00)
--- NOTE | 2016-07-24 12:16 | IPN ---
DATE OF SERVICE: 07/24/2016 SUBJECTIVE: The patient tells me he has no specific complaints at the present time. He can tell me his name and his date of , but otherwise he is disoriented to place, time, situation. He does not know what city he is in, what building he is in, day, month, or year, but he does want to leave the room immediately because he has to go and tend to horses. OBJECTIVE: VITAL SIGNS: Temperature 98.6, pulse 59, respiratory rate 18, blood pressure 152/84, oxygen saturation 97% on room air. GENERAL: He is an elderly man laying in bed comfortably and peacefully in no distress. HEENT: Cranial nerves II-XII are grossly intact. He is mildly disheveled. He has moist mucous membranes. No elevation of central venous pressure. CARDIOVASCULAR EXAMINATION: S1, S2. Regular. RESPIRATORY EXAMINATION: Clear. He does cough during the examination, though. It sounds wet. ABDOMINAL EXAMINATION: Benign. EXTREMITIES: No clubbing, cyanosis or edema. LABORATORY STUDIES: WBC 4.4, hemoglobin 11.3, hematocrit 33.8, platelet count 205. Chemistry panel: Sodium 138, potassium 3.6, chloride 104, bicarbonate 26, BUN 19, creatinine 0.9, magnesium 1.8. He has multiple sets of cardiac enzymes, which are negative. Thyroid stimulating hormone (TSH) within normal limits. INR 1.6. TOXICOLOGY SCREEN: Negative. MICROBIOLOGY: Blood cultures and urine cultures are pending. We did a vascular ultrasound of the carotids, which did not reveal any hemodynamically significant obstruction. He had a chest x-ray, which was no acute cardiopulmonary process, and a CT scan of the head, which revealed age-related atrophy and microvascular ischemic changes. ASSESSMENT AND PLAN: This is an 81-year-old man who has had two or three days of cough, who presented with a near-syncopal episode. PROBLEMS: 1. Cough and near syncope. The patient may be having a viral infection. He is not tachycardic or has leukocytosis. He has not had a fever, but he does have a cough. A 2D echocardiogram has been ordered. Given his near-syncopal symptoms, suspect that this is more likely related to viral infection; however, something I do find concerning is that the patient reportedly lives alone. He does have a very involved family and people visit him often and take him out every single day; however, he does live independently at the present time. Given his complete disorientation, I do hesitate to disposition him back independently. I will have him evaluated by physical therapy (PT). I will also involve [facility] ([facility]) in his care. For the time being, I will keep him in the progressive care unit while awaiting his echocardiogram results. 2. History of a cerebrovascular accident (CVA). Patient has no reported residual deficits. He is on Coumadin; however, his INR is subtherapeutic. Will continue on his Coumadin dosing. Given his advanced dementia, I question his ability to take these medications appropriately at home. Again, being on anticoagulation, near-syncopal episode and the fact that he is independent reportedly, living independently is concerning for his fall risk and I would like him evaluated by physical therapy. 3. Hypertension. The patient is becoming mildly hypertension. I will restart his angiotensin-converting enzyme (ALLY) inhibitor. His hydrochlorothiazide is currently on hold. He reportedly appeared dehydrated at the time of admission. 4. Dementia. As for the family, being disoriented is actually his baseline. 5. Deep venous thrombosis (DVT) prophylaxis. The patient is on Coumadin.
[2016-07-24 15:50] VITALS: BP 152/62
[2016-07-24] MEDS: WARFARIN SOD 5 MG TAB PO SCH (16:35)
[2016-07-24 19:47] VITALS: BP 106/63
[2016-07-25] VITALS (7 sets, daily range): BP systolic 112–168; BP diastolic 68–85
[2016-07-25 05:36] LABS: BASO % 0.5 % (0.0-1.0); EOS % 1.3 % (0.0-3.0); LARGE UNSTAINED CELL # 0.2 K/mm3 (0.0-0.4); LARGE UNSTAINED CELL % 4.1 % (0.0-4.0); LYMPH # 1.1 K/mm3 (1.5-4.5); LYMPH % 25.9 % (24.0-44.0); MEAN CORPUSCULAR HEMOGLOBIN 31.2 pg (27.0-33.0); MEAN CORPUSCULAR HGB CONC 32.5 g/dl (32.0-36.5); MEAN CORPUSCULAR VOLUME 96.2 fl (80.0-96.0); MONO # 0.4 K/mm3 (0.0-0.8); MONO % 11.5 % (0.0-5.0); NEUTROPHILS # 2.1 K/mm3 (1.8-7.7); NEUTROPHILS % 56.7 % (36.0-66.0); PLATELET COUNT, AUTOMATED 211 k/mm3 (150-450); WHITE BLOOD COUNT 3.8 K/mm3 (4.0-10.0)
[2016-07-25 05:38] LABS: INR 1.86
[2016-07-25 05:56] LABS: ANION GAP 10 MEQ/L (8-16); BLOOD UREA NITROGEN 23 MG/DL (7-18); CARBON DIOXIDE LEVEL 26 MEQ/L (21-32); CHLORIDE LEVEL 104 MEQ/L (98-107); CREATININE FOR GFR 0.98 MG/DL (0.70-1.30); GLOMERULAR FILTRATION RATE > 60.0 (>35); GLUCOSE, FASTING 93 MG/DL (83-110); POTASSIUM SERUM 3.6 MEQ/L (3.5-5.1); SODIUM LEVEL 140 MEQ/L (136-145)
[2016-07-25] MEDS: SIMVASTATIN 40 MG TAB PO SCH (09:10)
[2016-07-25] MEDS: ENALAPRIL MALEATE 5 MG TAB PO SCH (09:10)
[2016-07-25] MEDS: PANTOPRAZOLE 20 MG TAB PO SCH (09:11)
--- NOTE | 2016-07-25 11:30 | ECHO ---
DATE OF PROCEDURE: 07/24/2016 DATE OF : 1935 AGE: 81 REFERRING PROVIDER: Dr. Dann Blanca. PATIENT LOCATION: Room 3218. REASON FOR ECHOCARDIOGRAM: Syncope. 2D MEASUREMENTS: IVS: 0.94 cm LV: 4.0 cm LVPW: 0.90 cm LA: 3.4 cm Aorta: 3.2 cm IVC: 0.5 cm DOPPLER MEASUREMENTS: Peak velocity across the aortic valve: 1.9 m/s Peak velocity across the LVOT: 1.3 m/s Mitral E: 0.72 Mitral A: 1.0 Ratio 0.7 Maximum tricuspid valve velocity: 2.9 m/s 2D COMMENTS: 1. Normal left ventricular size, wall thickness and normal global left ventricular systolic function. The estimated global left ventricular systolic ejection fraction is 65% to 70%. 2. Normal left atrium. Normal right atrium and right ventricle. There was a Echogenic stricture on the lateral aspect of the left atrium that seems to be immobile in nature, size was 2.8 x 4.4 cm. 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 3. The atrial septum appeared to be normal without evidence of defect or shunt. 4. Normal aortic root. 5. No pericardial effusion seen. 6. Mildly calcified aortic valve with normal leaflet excursion. Mildly calcified mitral annulus with normal anterior mitral valve leaflet motion. Normal tricuspid valve and pulmonic valve. The proximal pulmonary artery branches were not well visualized. 7. The inferior vena cava was small, central venous pressure may be low. DOPPLER: It detects trace aortic regurgitation, trace mitral regurgitation, moderate tricuspid regurgitation and mild pulmonic regurgitation. The calculated pulmonary artery systolic pressure varies between 40 to 50 mmHg. Abnormal relaxation pattern was noted across the mitral valve leaflets consistent with grade 1 left ventricular diastolic dysfunction. IMPRESSION: 1. Normal global left ventricular systolic function. There are features of left ventricular diastolic dysfunction, grade 1. 2. Aortic valve sclerosis with trace aortic regurgitation. No significant aortic stenosis. 3. Mitral annulus calcification with trace mitral regurgitation. 4. A left atrial mass was noted on the lateral aspect of the left atrium that is most likely a left atrial myxoma. 5. Moderate tricuspid regurgitation with moderate pulmonary hypertension. 6. Mild pulmonic regurgitation. 7. The above findings of atrial myxoma was discussed with patient's hospitalist. CLAUDETTE
--- NOTE | 2016-07-25 16:27 | IPN ---
DATE: 07/25/2016 Mr. Yip is feeling well today. He has been up, walking around. No complaints of pain. No chest pain. Not particularly short of breath. He is interested in finding out about his echocardiogram results. Temperature is 96.3, pulse 65, respiratory rate 20, blood pressure 117/72, 96% on room air. Intake and output notable for a positive fluid balance of +30 mL. Weight is 62.6 kg with a body mass index of 18.7. He is awake, appropriately interactive, alert to person. Mucous membranes moist. Neck supple. Breathing is symmetrical, rested. Heart: Regular rate and rhythm. I appreciate no myxomatous plop. Abdomen: Soft, doughy, nontender. White cell count is 3.8, hemoglobin 11.4 and platelets of 211. BUN 23. Influenza swab would appear to be positive. Echocardiogram showed evidence of a left atrial mass, though to be a myxoma. ASSESSMENT: This is an 81-year-old who presented with cough and near syncope, most likely had influenza. Incidentally noted to have an atrial myxoma. PLAN: 1. For influenza, the patient will be started on Tamiflu to complete a course. 2. The patient has an atrial myxoma. I have discussed this case by phone with Dr. Ashley who has discussed the case with the family in person. They are not pursuing an aggressive course at this point. No further imaging is ordered. This has been slow growing and can be followed as an outpatient by Dr. Ashley. 3. The patient has hypertension. 4. The patient has dementia and is at his baseline.
[2016-07-25] MEDS ORDERED: OSELTAMIVIR PHOSPHATE 75 MG CAP (TAMIFLU) PO ONE (17:00)
[2016-07-25] MEDS: WARFARIN SOD 5 MG TAB PO SCH (17:11)
--- NOTE | 2016-07-25 17:21 | CR ---
DATE OF CONSULTATION: 07/25/2016 CARDIOLOGY CONSULTATION REFERRING PHYSICIAN: Dr. Almas Eduardo PRIMARY CARE PROVIDER: Jacob Hunter, Nurse Practitioner CHIEF COMPLAINT: Intermittent lightheadedness. Incidental echocardiographically documented left atrial myxoma. HISTORY: This 81-year-old father of two grown children, living in an assisted living complex in [place], [place], is followed by Jacob Hunter for essential hypertension, hypercholesterolemia and prior history of cerebrovascular accident, on oral anticoagulation. Because of senile dementia, he is monitored closely by his daughter's significant other, Cristofer. 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 Has been known to wander because of his confusion. Does follow Cristofer's direction quite well. Remote history of profound near syncope with transient visual disturbance, nausea and vomiting, shown to be triggered by acute left cerebellar infarction. 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 He was placed on oral anticoagulation without recurrent lateralizing neurological deficit, flank pain, hematuria, or blue toe syndrome. Has been completely free of cardiovascular complaint on his combination medical therapy until October 2012. Began having episodes of dizziness and falling, with prior ER evaluation for blunt head trauma. CT scan of Brain showed no more than old bilateral basal ganglia and thalamic lacunar infarcts. Last ER visit for the same was May 2016. Apparently for 24 hours prior to his current presentation, had been suffering from Flu like symptoms that affected other family members as well. Descibed frequent cough and lethargy. 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 According to Cristofer, he did appear fatigued and more sluggish but insisted on helping with the cleaning. He was doing some light vacuuming when he was observed to be leaning against the wall. He was initially nonverbal but alert and breathing with postural tone. Briefly, he was unable to follow even simple commands but within seconds walked himself to the chair to sit down. Remained free of any lateralizing neurological deficits. [facility] ambulance was summoned, and he was transported to the emergency room. By the time he arrived, he was back to his usual self. EKG monitoring while en route to the hospital showed only sinus rhythm. Initial ER vital signs showed a heart rate of 65 beats per minute, blood pressure 151/78, oxygen saturation 95% with a respiratory rate of 20 per minute, and he had a low grade temperature. He remained free of lateralizing neurological finding, but in light of his prior history of cerebrovascular accident, he was admitted to hospital for observation and underwent imaging, including a CT scan without contrast showing age-related cerebral atrophy and microvascular ischemic changes without acute intracranial hemorrhage, infarction or mass effect. Carotid ultrasound was also performed showing no hemodynamically significant obstruction. An echocardiogram was performed which showed normal left ventricular systolic function but LV diastolic dysfunction, degenerative changes of the mitral and aortic valvular apparatus without significant valvular dysfunction, moderate tricuspid regurgitation with moderate pulmonary hypertension and prominent left atrial mass measuring at least 2.8 x 4.4 cm in diameter, believed to be left atrial myxoma. In light of this latter finding, cardiology consultation was placed. CARDINAL CARDIAC SYMPTOMS: The patient's customary effort limitation is fatigue. Has never experienced any chest, jaw or arm discomfort with effort. Despite prior history of smoking, is not limited by dyspnea. No history of orthopnea. No complaints of palpitation. Has episodic positional lightheadedness but no recent fall. Events 07/23/2016, believed to be triggered by a recent upper respiratory tract infection/post viral syndrome. Remote cerebrovascular accident as described, on longstanding oral anticoagulation without recurrent lateralizing neurological deficit or other symptoms or sign of embolic phenomenon. Recent low grade temperature as mentioned. No previously documented myocardial infarction, angina or abnormal EKG. Coronary risk factors: Male gender. Age. Prior smoker. Hypercholesterolemia. Hypertension. No diabetes mellitus or symptomatic carotid vascular disease. Family history not applicable. Other past medical/surgical history: Smoking-induced COPD. Gastroesophageal reflux disease/Estrada's esophagus. Prior diverticular disease of colon. Remote Cerebellar infarcts on chronic oral anticoagulation. Senile dementia since at least 2012. Systems review: Obtained through daughter's significant other, Cristofer, who closely Monitors the patient on the day by day basis. Wears corrective lenses. Recent flulike illness as mentioned. Currently good appetite with no dysphasia, weight Loss abdominal pain or GI bleeding. No apparent urological complaints. No frequent infections or anemia. No arthritic complaints. Medications: At home he takes enalapril 5 mg daily, hydrochlorothiazide 12.5 mg daily, Zocor 40 mg daily at bedtime, Coumadin 5 mg daily, and Prevacid 30 mg Daily. Allergies: None known. Physical examination: Constitutional: Pleasantly demented, elderly male lying comfortably with the head Of the bed elevated 30. Slim, barrel chested. Wearing his street clothes. Vital signs: HR 78 bpm and regular. BP 132/80 supine, 128/76 sitting, 130/74 Standing. RR 18/m. O2 saturation 96% on room air. Weight 138 pounds. Height 72 inches. BMI 18.7 Eyes: Normal conjunctiva and lids. No pallor, icterus, palpebral petechiae Or xanthoma. ENT/mouth: No oral moisture. No central cyanosis. Neck: Trachea midline. Thyroid not enlarged. Neck veins at the level sternal angle. Respiratory: Increased anteroposterior chest diameter with slightly reduced chest excursion Good air entry with no inspiratory rales. Slight prolongation of expiration but no audible wheeze. Cardiovascular: Apical impulse not palpable. Heart sounds distant. Normal S2 splitting S4 but no S3 gallop or rub. Soft apical systolic murmur. No diastolic murmur. Normal carotid upstroke and volume. No bruits. Normal upper extremity, femoral And pedal pulses. No dependent edema or varicose veins. Abdominal aorta palpable Not aneurysmal. No bruits. GI: Scaphoid, soft, nontender with no hepatosplenomegaly. Normal bowel sounds Rectal examination not indicated. Musculoskeletal: Normal-appearing muscular strength and tone. No joint deformities. Normal spine curvature and gait. Neurologic/psych: As mentioned, somewhat demented. Disoriented to place, time and person. Eye, facial, and extremity movements appear to be symmetrical and normal. No abnormal movements. Skin: No pallor, icterus or ecchymotic lesions. Portable upright chest x-ray taken 07/23/2016 was reviewed independently and shows cardiomegaly even allowing for this portable technique. The thoracic aorta was slightly unfolded. Pulmonary vasculature did not appear to be accentuated. Well inflated lung santoyo with no localized infiltrate or pleural effusion. EKG: Tracing on admission was reviewed independently and showed sinus rhythm at 66 beats per minute with left atrial conduction disturbance, at least borderline first-degree AV block. Somewhat low voltages with RSR prime in V1 and V2 with somewhat slow precordial R-wave progression suggestive of pulmonary disease. Could not rule out a prior septal injury. No acute repolarization abnormalities. No prior tracing for comparison. Echocardiogram performed 07/24/2016 was also reviewed independently and shows: Normal left ventricular size with basal septal hypertrophy but otherwise normal LV wall thickness. Left ventricular wall motion was symmetrical and normal to hyperkinetic. Moderately dilated left atrium measuring 4.6 cm. Subtle mitral annular thickening with normal leaflet thickness and excursion and no posterior systolic buckling. Aortic valvular sclerosis but normal cusp separation. Normal aortic root size. Normal right heart chamber sizes with Doppler estimated right ventricular systolic pressure of 39 mmHg. (transvalvular gradient of 34 mmHg and estimated central venous pressure of 5 mmHg based on IVC size less than 1.0 cm with normal respiratory collapse). No pericardial effusion. Obvious large left atrial mass originating from the base of the interventricular septum with relatively wide stalk. The mass was not mobile. There appeared to be no infringement on LV inflow tract. With the asymmetrical basal septal wall thickening, there was no left ventricular outflow tract obstruction. LABORATORY DATA: Hemoglobin today 11.4 with essentially normal red blood cell indices. White blood cell count was lower limits of normal at 3.8, platelet count was normal. PT/INR today 21.5/1.9. Chemistries today confirmed electrolyte balance with BUN 23, creatinine 1.0, fasting glucose 93. Serum calcium was slightly low at 8.0 with albumin 3.7. Serum magnesium yesterday was normal at 1.8, serial Troponin I levels have been negative. Ultrasensitive TSH on admission was normal. Liver function studies were normal. Urinalysis showed trace microscopic hematuria but no pyuria or proteinuria. Toxicology screen was performed on presentation and was negative. IMPRESSION/PLAN: 1. Near syncope/syncope: A history of momentary loss of awareness but no loss of postural tone. Suspected to be triggered by his viral process and positional post activity. Currently does not have an orthostatic blood pressure drop. Has been free of any cardiac arrhythmia while being monitored here in hospital. We would not be inclined to change his chronic antihypertensive therapies beyond withholding his diuretic for the time being. 2. Left atrial myxoma: Very impressive left atrial mass that is nonmobile. Despite its impressive size, does not appear to be obstructing LV inflow. On his current oral anticoagulation, he has been free of symptomatic thromboembolic event. I have discussed the prognosis of this fairly slow growing mass frankly with the patient and his caregiver. Neither appear to be interested in any sort of invasive intervention. They intend to discuss health care proxy and advanced directives as an outpatient and complete appropriate documentation. 3. Abnormal EKG: Signs of his chest configuration, hypertension and pulmonary disease. QS pattern in V1 and V2, yet no localized wall motion abnormality on echocardiography. Has been free of any symptom or sign of myocardial ischemia. Serial Troponin I levels are negative. Would leave him on the same protective low-dose angiotensin-converting enzyme (ALLY) inhibition, simvastatin and oral anticoagulation. 4. Hypertensive heart disease (benign without heart failure): No symptoms or signs of congestion. Current blood pressure would be considered well controlled on his low-dose Vasotec alone. Perhaps his low-dose HCTZ is no longer necessary. At this point, we will not plan on following him but appreciate the opportunity to participate in his care. We would be pleased to reassess him at any time. [place] Copy: Jacob Hunter, Nurse Practitioner CLAUDETTE
--- NOTE | 2016-07-25 19:50 | EDDOCDS ---
Nurse's Notes [facility] Name: Jorge Alberto Yip Age: 81 yrs Sex: Male : 1935 Arrival Date: 07/23/2016 Time: 13:18 Bed 9 Private MD: Diagnosis: Transient cerebral ischemic attack, unspecified;Unspecified dementia Presentation: 07/23 13:36 Presenting complaint: Friend states: became weak this am while cleaning \T\ [facility]. found bcj by staff sitting in chair. pt does not recall incident. denies headache chest pain SOB resp distress on arrival. denies recent fall head injury. Adult Sepsis Screening: The patient does not have new or worsening altered mentation. Patient's respiratory rate is less than 22. Systolic blood pressure is greater than 100. Patient has a qSOFA score of 0- Negative Sepsis Screen. Suicide/Homicide risk assessment- the patient denies having any suicidal and/or homicidal ideations and does not present with any other emotional, behavioral or mental health complaints. Status: Patient is not a financial service professional or dependent. Transition of care: patient was not received from another setting of care. 13:36 Acuity: ODETTE Level 3 bcj 13:36 Method Of Arrival: Ambulance bcj Triage Assessment: 13:49 General: Appears in no apparent distress, comfortable, Behavior is cooperative. Pain: bcj Denies pain. Neurological: Level of Consciousness is awake, alert, Oriented to person, place, time, Public Health Program Manager are equal bilaterally Moves all extremities. Speech is normal, Facial symmetry appears normal, Denies weakness dizziness, numbness headache. Cardiovascular: Rhythm is sinus rhythm Chest pain is denied. Respiratory: Airway is patent Respiratory effort is even, unlabored, Respiratory pattern is regular. Derm: Skin is pink, warm & dry. Historical: - Allergies: no known allergies; - Home Meds: 1. Coumadin 5 mg Oral tab 1 tab once daily 2. Zocor 40 mg Oral tab 1 tab once daily 3. Prevacid 30 mg Oral cpDR 1 cap once daily 4. enalapril maleate 5 mg Oral tab 1 tab once daily 5. hydrochlorothiazide 12.5 mg Oral tab 1 tab once daily - PMHx: CVA; Hypertension; GERD; - PSHx: none; - Social history: Smoking status: Patient states former smoker of tobacco. No barriers to communication noted, The patient speaks fluent Tajik, Speaks appropriately for age. - Family history: Not pertinent. - : The pt / caregiver states he / she is on anticoagulants: coumadin. Home medication list is obtained from the patient. - Exposure Risk Screening:: None identified. Screenin:35 Screening information is obtained from the patient. Fall risk: No risks identified. bcj Assistance ADL's: requires no assistance with activities of daily living. Abuse/DV Screen: The patient / caregiver reports he/she is: not in a situation that causes fear, pain or injury. Nutritional screening: No deficits noted. Advance Directives: There is no active DNR order. home support is adequate. Assessment: 14:35 General: Appears in no apparent distress, comfortable, Behavior is cooperative. Pain: bcj Denies pain. Neurological: Level of Consciousness is awake, alert, Oriented to person, place, time, Public Health Program Manager are equal bilaterally Moves all extremities. Speech is normal, Facial symmetry appears normal, Pupils are PERRLA. Cardiovascular: Rhythm is sinus rhythm. Derm: Skin is pink, warm & dry. pale. 16:30 General: Appears in no apparent distress, comfortable, Behavior is cooperative. Pain: bcj Denies pain. Neurological: Level of Consciousness is awake, alert, Oriented to person, place, time, Speech is normal, Facial symmetry appears normal. Cardiovascular: Rhythm is sinus rhythm. Derm: Skin is pink, warm & dry. 18:29 General: Appears in no apparent distress, comfortable, Behavior is cooperative. Pain: bcj Denies pain. Neurological: Level of Consciousness is awake, alert, Oriented to person, place, time, Public Health Program Manager are equal bilaterally Moves all extremities. Speech is normal. Cardiovascular: Rhythm is sinus rhythm. Derm: Skin is intact, Skin is pink, warm & dry. Vital Signs: 13:28 BP 151 / 78 (auto/); bcj 13:29 Pulse 66 MON; Pulse Ox 94% ; bcj 13:31 BP 151 / 78; Pulse 65; Resp 20; Temp 100.5(O); Pulse Ox 95% ; Weight 68.04 kg; Height 5 jlf ft. 2 in. (157.48 cm); Pain 0/10; 13:43 BP 120 / 68 (auto/); bcj 13:43 Pulse 66 MON; Pulse Ox 93% ; bcj 14:10 BP 147 / 73 (auto/); bcj 14:11 Pulse 66 MON; Pulse Ox 92% ; bcj 14:13 BP 138 / 69 (auto/); bcj 14:13 Pulse 66 MON; Pulse Ox 93% ; bcj 14:28 BP 142 / 79 (auto/); bcj 14:28 Pulse 66 MON; Pulse Ox 95% ; bcj 14:43 BP 127 / 67 (auto/); bcj 14:43 Pulse 68 MON; Pulse Ox 93% ; bcj 14:58 BP 127 / 70 (auto/); bcj 14:58 Pulse 68 MON; Pulse Ox 92% ; bcj 15:13 BP 135 / 75 (auto/); bcj 15:13 Pulse 68 MON; Pulse Ox 90% ; bcj 15:28 BP 142 / 78 (auto/); bcj 15:28 Pulse 68 MON; Pulse Ox 95% ; bcj 15:43 BP 142 / 76 (auto/); bcj 15:43 Pulse 68 MON; Pulse Ox 98% ; bcj 15:58 BP 139 / 72 (auto/); bcj 15:58 Pulse 66 MON; Pulse Ox 92% ; bcj 16:13 BP 148 / 72 (auto/); bcj 16:13 Pulse 68 MON; Pulse Ox 93% ; bcj 16:28 BP 145 / 73 (auto/); bcj 16:28 Pulse 68 MON; Pulse Ox 93% ; bcj 17:23 BP 144 / 75; Pulse 68; Resp 16; Temp 98.5(TE); Pulse Ox 95% on R/A; Pain 0/10; bcj 13:31 Body Mass Index 27.44 (68.04 kg, 157.48 cm) [facility] Vitals: 13:49 Glucose Measurement D-stick done by EMS FS BS 14. Log In Time N/A - ambulance arrival. j 14:35 Refer to monitor trend for complete vital signs trends. [facility] ED Course: 13:19 Patient visited by Lorena Foster Science Interpreter. deg 13:[address] [facility] deg 13:29 No apparent distress. Resting quietly. Awaiting bed assignment. bcj 13:29 IV is intact. bcj 13:31 Patient visited by Kaya Hammonds PCA. jlf 13:31 Patient visited by Kaya Hammonds PCA. jlf 13:31 Patient moved to [facility] 13:32 Christian[facility] Noe FNP [facility]. ke 13:32 Patient visited by Christiano Noe FNP. ke 13:32 Patient visited by Christiano Noe FNP. ke 13:47 Triage Initiated bcj 13:52 Patient visited by Tej Giles RN. bcj 14:11 Patient visited by Kaya Hammonds PCA. jlf 14:12 Patient visited by Kaya Hammonds PCA. jlf 14:12 EKG done. (by ED staff). Reviewed by Christiano ZHOU. jlf 14:33 CT Head Without Contrast Returned. EDMS 14:33 Chest, 1 View Returned. EDMS 14:35 No apparent distress. Resting quietly. awaiting re-evaluation by ER physician. bcj 14:35 The patient / caregiver is instructed regarding the plan of care and ED course. bcj 14:35 Maintain field IV. Site clean & dry. Gauge & site: 20ga LAC. IV. bcj 14:38 Patient visited by Tej Giles RN. bcj 14:39 PT/INR Sent. bcj 15:07 Patient visited by Kaya Hammonds PCA. jlf 15:31 [facility] was scanned into [employer]ep[employer] and attached to record. [email or web address] 15:35 Patient visited by Christiano Noe FNP. ke 15:35 Patient name changed from Jorge Alberto\S\\S\[place]\S\ to Jorge Alberto\S\ \S\[place]. EDMS 15:51 Patient visited by Kaya Hammonds PCA. jlf 15:57 Hussein Hadley is Hospitalizing Provider. ke 16:38 Patient visited by Tej Giles RN. bcj 17:27 Patient visited by Tej Giles RN. bcj 17:49 Patient moved to Ultrasound hgl 18:13 Patient moved to 9 hgl 18:29 No apparent distress. Resting quietly. Awaiting bed assignment. bcj 18:29 nurse monitoring on. Pulse ox on. NIBP on. bcj 18:32 Patient visited by Tej Giles RN. bcj 18:32 No procedures done that require assistance. bcj 18:34 Duplex,carotid (complete) Returned. EDMS 07/24 06:39 T-Sheet-- Draft Copy was scanned into [employer]ep[employer] and attached to record. hs2 12:24 ECG/EKG was scanned into [employer]ep[employer] and attached to record. gb Order Results: Lab Order: Acetaminophen Level; SPEC'M 07/23/16 14:28 Test: ACETAMINOPHEN LEVEL; Value: < 2.0; Range: 10.0-30.0; Abnormal: Below low normal; Units: UG/ML; Status: F Lab Order: CBC with Diff; SPEC'M 07/23/16 14:28 Test: WHITE BLOOD COUNT; Value: 7.4; Range: 4.0-10.0; Units: K/mm3; Status: F Test: RED BLOOD COUNT; Value: 3.84; Range: 4.30-6.10; Abnormal: Below low normal; Units: M/mm3; Status: F Test: HEMOGLOBIN; Value: 12.0; Range: 14.0-18.0; Abnormal: Below low normal; Units: g/dl; Status: F Test: HEMATOCRIT; Value: 37.0; Range: 42.0-52.0; Abnormal: Below low normal; Units: %; Status: F Test: MEAN CORPUSCULAR VOLUME; Value: 96.3; Range: 80.0-96.0; Abnormal: Above high normal; Units: fl; Status: F Test: MEAN CORPUSCULAR HEMOGLOBIN; Value: 31.3; Range: 27.0-33.0; Units: pg; Status: F Test: MEAN CORPUSCULAR HGB CONC; Value: 32.5; Range: 32.0-36.5; Units: g/dl; Status: F Test: RED CELL DISTRIBUTION WIDTH; Value: 15.2; Range: 11.5-14.5; Abnormal: Above high normal; Units: %; Status: F Test: PLATELET COUNT, AUTOMATED; Value: 231; Range: 150-450; Units: k/mm3; Status: F Test: NEUTROPHILS %; Value: 74.9; Range: 36.0-66.0; Abnormal: Above high normal; Units: %; Status: F Test: LYMPH %; Value: 10.4; Range: 24.0-44.0; Abnormal: Below low normal; Units: %; Status: F Test: MONO %; Value: 11.4; Range: 0.0-5.0; Abnormal: Above high normal; Units: %; Status: F Test: EOS %; Value: 0.3; Range: 0.0-3.0; Units: %; Status: F Test: BASO %; Value: 0.6; Range: 0.0-1.0; Units: %; Status: F Test: LARGE UNSTAINED CELL %; Value: 2.5; Range: 0.0-4.0; Units: %; Status: F Test: NEUTROPHILS #; Value: 5.6; Range: 1.8-7.7; Units: K/mm3; Status: F Test: LYMPH #; Value: 0.9; Range: 1.5-4.5; Abnormal: Below low normal; Units: K/mm3; Status: F Test: MONO #; Value: 0.8; Range: 0.0-0.8; Units: K/mm3; Status: F Test: EOS #; Value: 0.0; Range: 0.0-0.50; Units: K/mm3; Status: F Test: BASO #; Value: 0.0; Range: 0.0-0.2; Units: K/mm3; Status: F Test: LARGE UNSTAINED CELL #; Value: 0.2; Range: 0.0-0.4; Units: K/mm3; Status: F Lab Order: Cardiac Injury Profile; SPEC'M 07/23/16 14:28 Test: CPK CREATINE PHOSPHOKINASE; Value: 188; Range: 39-308; Units: U/L; Status: F Test: CK-MB VALUE MASS; Value: 3.3; Range: 0.0-3.6; Units: NG/ML; Status: F Test: MB/CK RELATIVE INDEX; Value: 1.75; Range: < OR =4; Status: F Test Note: ; DIAGNOSIS CRITERIA MMB ng/ml Relative Index (RI) NON-AMI < or = 5 N/A SILVER ZONE > 5 < or = 4 AMI > 5 > 4 Lab Order: Drug Eval Toxicology ED Only; SPEC'M 07/23/16 17:32 Test: AMPHETAMINES LEVEL URINE; Value: NEGATIVE; Range: NEGATIVE; Status: F Test: BARBITURATES URINE; Value: NEGATIVE; Range: NEGATIVE; Status: F Test: BENZODIAZEPINES URINE; Value: NEGATIVE; Range: NEGATIVE; Status: F Test: CANNABINOIDS URINE; Value: NEGATIVE; Range: NEGATIVE; Status: F Test: COCAINE METABOLITE URINE; Value: NEGATIVE; Range: NEGATIVE; Status: F Test: METHADONE URINE; Value: NEGATIVE; Range: NEGATIVE; Status: F Test: OPIATES URINE; Value: NEGATIVE; Range: NEGATIVE; Status: F Test: TRICYCLIC ANTIDEPRESS URINE; Value: NEGATIVE; Range: NEGATIVE; Status: F Test Note: ; ALL PRESUMPTIVE POSITIVE FINDINGS ARE UNCONFIRMED NORMAL VALUES THRESHOLD IN NG/ML AMPHETAMINES 1000 METHAMPHETAMINES 1000 BARBITURATES 300 BENZODIAZEPINES 300 CANNABINOIDS (THC) 50 COCAINE METABOLITE 300 METHADONE 300 OPIATES 300 PHENCYCLIDINE 25 TRICYCLIC ANTIDEPRESSANTS 1000 RESULTS ARE FOR MEDICAL PURPOSES ONLY. ALL URINE SPECIMENS WILL BE SAVED FOR 3 DAYS. IF CONFIRMATION OF A PRESUMPTIVE POSTIVE SCREEN RESULT IS DESIRED, CALL CHEMISTRY ([phone]) AND REQUEST URINE TO BE SENT TO REFERENCE LAB. FOR A LIST OF CLOSELY RELATED COMPOUNDS PLEASE CALL THE LAB. Lab Order: Liver Profile; SPEC'M 07/23/16 14:28 Test: AST/SGOT; Value: 34; Range: 15-37; Units: U/L; Status: F Test: ALT/SGPT; Value: 33; Range: 12-78; Units: U/L; Status: F Test: ALKALINE PHOSPHATASE; Value: 85; Range: 45-117; Units: U/L; Status: F Test: BILIRUBIN,TOTAL; Value: 0.3; Range: 0.2-1.0; Units: MG/DL; Status: F Test: BILIRUBIN,DIRECT; Value: 0.1; Range: 0.0-0.2; Units: MG/DL; Status: F Test: TOTAL PROTEIN; Value: 7.6; Range: 6.4-8.2; Units: GM/DL; Status: F Test: ALBUMIN; Value: 3.7; Range: 3.2-5.2; Units: GM/DL; Status: F Test: ALBUMIN/GLOBULIN RATIO; Value: 0.95; Range: 1.00-1.93; Abnormal: Below low normal; Status: F Lab Order: MED Profile; SPEC'M 07/23/16 14:28 Test: GLUCOSE, FASTING; Value: 106; Range: 83-110; Units: MG/DL; Status: F Test: BLOOD UREA NITROGEN; Value: 23; Range: 7-18; Abnormal: Above high normal; Units: MG/DL; Status: F Test: CREATININE FOR GFR; Value: 1.15; Range: 0.70-1.30; Units: MG/DL; Status: F Test: GLOMERULAR FILTRATION RATE; Value: > 60.0; Range: >35; Status: F Test: SODIUM LEVEL; Value: 138; Range: 136-145; Units: MEQ/L; Status: F Test: POTASSIUM SERUM; Value: 3.8; Range: 3.5-5.1; Units: MEQ/L; Status: F Test: CHLORIDE LEVEL; Value: 101; Range: 98-107; Units: MEQ/L; Status: F Test: CARBON DIOXIDE LEVEL; Value: 29; Range: 21-32; Units: MEQ/L; Status: F Test: ANION GAP; Value: 8; Range: 8-16; Units: MEQ/L; Status: F Test: CALCIUM LEVEL; Value: 8.2; Range: 8.8-10.2; Abnormal: Below low normal; Units: MG/DL; Status: F Test Note: ; Units are mL/min/1.73 m2 Chronic Kidney Disease Staging per NKF: Stage I & II GFR >=60 Normal to Mildly Decreased Stage III GFR 30-59 Moderately Decreased Stage IV GFR 15-29 Severely Decreased Stage V GFR <15 Very Little GFR Left ESRD GFR <15 on SCENARIO WRITER Lab Order: Salicylate Level; SPEC'M 07/23/16 14:28 Test: SALICYLATE LEVEL; Value: < 1.7; Range: 5.0-30.0; Abnormal: Below low normal; Units: MG/DL; Status: F Lab Order: Thyroid Stimulating Hormone; SPEC'M 07/23/16 14:28 Test: THYROID STIMULATING HORMONE; Value: 0.439; Range: 0.358-3.740; Units: uIU/ML; Status: F Lab Order: Troponin; SPEC'M 07/23/16 14:28 Test: TROPONIN I; Value: < 0.02; Range: < 0.10; Units: NG/ML; Status: F Test Note: ; Troponin I Reference Interval for [employer]* LOCI: 99th Percentile= 0.00-0.045 ng/ml Risk Stratification: <= 0.10 ng/ml Decreased Risk for Adverse Clinical Events. 0.10-1.50 ng/ml Increased Risk for Adverse Clinical Events. Evaluation of additional criterion and/or repeat testing in 2-6 hours is suggested to rule out myocardial damage. >= 1.50 ng/ml Indicative of Myocardial Injury. Lab Order: Urinalysis; SPEC'M 07/23/16 17:32 Test: APPEARANCE, URINE; Value: HAZY; Range: CLEAR; Status: F Test: COLOR, URINE; Value: YELLOW; Range: YELLOW; Status: F Test: PH,URINE; Value: 5.0; Range: 5.0-9.0; Units: UNITS; Status: F Test: SPECIFIC GRAVITY URINE AUTO; Value: 1.023; Range: 1.002-1.035; Status: F Test: PROTEIN, URINE AUTO; Value: NEGATIVE; Range: NEGATIVE; Units: mg/dL; Status: F Test: GLUCOSE, URINE (UA) AUTO; Value: NEGATIVE; Range: NEGATIVE; Units: mg/dL; Status: F Test: KETONE, URINE AUTO; Value: 1+; Range: NEGATIVE; Abnormal: Above high normal; Units: mg/dL; Status: F Test: UROBILINOGEN, URINE AUTO; Value: 2.0; Range: 0.0-2.0; Abnormal: Above high normal; Units: mg/dL; Status: F Test: BILIRUBIN, URINE AUTO; Value: NEGATIVE; Range: NEGATIVE; Status: F Test: NITRITE, URINE AUTO; Value: NEGATIVE; Range: NEGATIVE; Status: F Test: LEUKOCYTE ESTERASE, URINE AUTO; Value: NEGATIVE; Range: NEGATIVE; Status: F Test: BLOOD, URINE BLOOD; Value: 1+; Range: NEGATIVE; Abnormal: Above high normal; Status: F Test: WBC, URINE AUTO; Value: 1; Range: 0-3; Units: /HPF; Status: F Test: RBC, URINE AUTO; Value: 19; Range: 0-3; Abnormal: Above high normal; Units: /HPF; Status: F Test: BACTERIA, URINE AUTO; Value: NEGATIVE; Range: NEGATIVE; Status: F Test: SQUAMOUS EPITHELIAL CELL UR AU; Value: 0; Range: 0-6; Units: /HPF; Status: F Test: MUCUS, URINE; Value: SMALL; Range: NEGATIVE; Status: F Test: HYALINE CAST, URINE AUTO; Value: 0; Range: 0-1; Units: /LPF; Status: F Lab Order: PT/INR; SPEC'M 07/23/16 14:28 Test: PROTHROMBIN TIME; Value: 20.1; Range: 12.3-14.5; Abnormal: Above high normal; Units: SECONDS; Status: F Test: INR; Value: 1.70; Status: F Test Note: ; THERAPUTIC HUMAN INR VALUES INDICATIONS NORMAL RANGES PROPHYLAXIS/TREATMENT OF: VENOUS THROMBOSIS 2.0-3.0 PULMONARY EMBOLISM 2.0-3.0 PREVENTION OF SYSTEMIC EMBOLISM FROM: TISSUE HEART VALVES 2.0-3.0 ACUTE MYOCARDIAL INFARCTION 2.0-3.0 VALVULAR HEART DISEASE 2.0-3.0 ATRIAL FIBRILLATION 2.0-3.0 MECHANICAL VALVES(HIGH RISK) 2.5-3.5 RECURRENT MYOCARDIAL INFARCTION 2.5-3.5 Radiology Order: CT Head Without Contrast Test: CT Head Without Contrast REASON FOR EXAMINATION: CVA >4.5hrs; Clinical: Nonacute cerebrovascular accident.; ; Comparison: 10/23/2012.; ; Findings:; Age-related atrophy and microvascular ischemic changes with periventricular; leukomalacia is appreciated. The ventricles and sulci are symmetric. Silver-white; differentiation is maintained. There is no evidence for acute intracranial; hemorrhage, mass/mass effect, pathology or infarction. No extra-axial fluid; collection. Calvarium is intact. Paranasal sinuses and mastoid air cells are; clear.; ; Impression:; Age related atrophy and microvascular ischemic changes.; No acute intracranial hemorrhage, infarction, or mass/mass effect.; ; ; Signed by; Jonnie Callejas MD 07/23/2016 02:05 P; Radiology Order: Chest, 1 View Test: Chest, 1 View REASON FOR EXAMINATION: CVA >4.5hrs; Clinical: Cerebrovascular accident.; ; Comparison: 10/23/2012 .; ; Findings:; The mediastinum and cardiac silhouette are stable and within normal limits for; portable technique. Moderate hiatal hernia again appreciated. The lung santoyo; are clear without acute consolidation, effusion, or pneumothorax. Skeletal; structures are intact.; ; Impression:; Moderate hiatal hernia.; No acute cardiopulmonary process appreciated.; ; ; Signed by; Jonnie Callejas MD 07/23/2016 02:09 P; Radiology Order: Duplex,carotid (complete) Test: Duplex,carotid (complete) REASON FOR EXAMINATION: Near Syncope; Clinical: Near-syncopal episode.; ; Technique: Silver scale and color Doppler evaluation using linear high frequency; transducer; ; Findings:; Two-dimensional silver scale and color images demonstrate smooth intimal thickening; to the common carotid arteries with small amount of mixed atheromatous plaques; and the carotid bulbs extending to the internal carotid arteries bilaterally.; Normal laminar flow is appreciated without turbulence or narrowing. Color; Doppler interrogation demonstrates normal arterial wave patterns and velocities; with no mild spectral broadening. Normal flow direction is appreciated in the; bilateral vertebral arteries.; ; RIGHT (cm/s) LEFT (cm/s); ; ICA peak systolic velocity 60.1 78.4; ICA diastolic velocity 24.3 29.3; ECA peak systolic velocity 134.9 110.7; CCA peak systolic velocity 80.7 86.0; ICA/CCA ratio 0.74 0.91; ; Impression:; No hemodynamically significant areas of narrowing or stenosis appreciated.; Based on set standards narrowing falls within the less than 50% range.; ; ; Signed by; Jonnie Callejas MD 07/23/2016 06:25 P; Outcome: 07/23 15:58 Decision to Hospitalize by Provider. arben 18:29 Discharge Assessment: patient administered narcotics - no. The following High Risk [facility] Discharge criteria are identified: None. Admitted to PCU accompanied by nurse, accompanied by tech, via stretcher, on monitor. Condition: stable. CT Study completed. Ultrasound Study completed. Admission hand-off: Report Faxed. Property :Personal belongings accompany Pt. 18:48 Patient left the ED. dy Signatures: Dispatcher [employer] EDLorena Saldaña, Science Interpreter Unit deg Tej Giles, RN RN Aleyda Cintron, Reg Reg Almas Petersen, RN Christiano Mann, GOLDBEATER GOLDBEATER Willard Gong Jordain, HAYDE DISASTER DIRECTOR Kristine Morelos, Reg Reg [email or web address] Sarah Rausch, Reg Reg hs2 Chart Complete MTDD
--- NOTE | 2016-07-25 19:50 | EDDOCDS ---
Physician Documentation [facility] Name: Jorge Alberto Yip Age: 81 yrs Sex: Male : 1935 Arrival Date: 07/23/2016 Time: 13:18 Bed 9 Private MD: Disposition: 07/23/16 15:58 Hospitalization ordered by Hussein Hadley for Inpatient Admission. Preliminary diagnosis are Transient cerebral ischemic attack, unspecified, Unspecified dementia. - Bed requested for PCU. - Status is Inpatient Admission. dy - Condition is Stable. - Problem is an acute exacerbation. - Symptoms are unchanged. Historical: - Allergies: no known allergies; - Home Meds: 1. Coumadin 5 mg Oral tab 1 tab once daily 2. Zocor 40 mg Oral tab 1 tab once daily 3. Prevacid 30 mg Oral cpDR 1 cap once daily 4. enalapril maleate 5 mg Oral tab 1 tab once daily 5. hydrochlorothiazide 12.5 mg Oral tab 1 tab once daily - PMHx: CVA; Hypertension; GERD; - PSHx: none; - Social history: Smoking status: Patient states former smoker of tobacco. No barriers to communication noted, The patient speaks fluent Vietnamese, Speaks appropriately for age. - Family history: Not pertinent. - : The pt / caregiver states he / she is on anticoagulants: coumadin. Home medication list is obtained from the patient. - Exposure Risk Screening:: None identified. Vital Signs: 07/23 13:28 BP 151 / 78 (auto/); bcj 13:29 Pulse 66 MON; Pulse Ox 94% ; bcj 13:31 BP 151 / 78; Pulse 65; Resp 20; Temp 100.5(O); Pulse Ox 95% ; Weight 68.04 kg / 150 jlf lbs; Height 5 ft. 2 in. (157.48 cm); Pain 0/10; 13:43 BP 120 / 68 (auto/); bcj 13:43 Pulse 66 MON; Pulse Ox 93% ; bcj 14:10 BP 147 / 73 (auto/); bcj 14:11 Pulse 66 MON; Pulse Ox 92% ; bcj 14:13 BP 138 / 69 (auto/); bcj 14:13 Pulse 66 MON; Pulse Ox 93% ; bcj 14:28 BP 142 / 79 (auto/); bcj 14:28 Pulse 66 MON; Pulse Ox 95% ; bcj 14:43 BP 127 / 67 (auto/); bcj 14:43 Pulse 68 MON; Pulse Ox 93% ; bcj 14:58 BP 127 / 70 (auto/); bcj 14:58 Pulse 68 MON; Pulse Ox 92% ; bcj 15:13 BP 135 / 75 (auto/); bcj 15:13 Pulse 68 MON; Pulse Ox 90% ; bcj 15:28 BP 142 / 78 (auto/); bcj 15:28 Pulse 68 MON; Pulse Ox 95% ; bcj 15:43 BP 142 / 76 (auto/); bcj 15:43 Pulse 68 MON; Pulse Ox 98% ; bcj 15:58 BP 139 / 72 (auto/); bcj 15:58 Pulse 66 MON; Pulse Ox 92% ; bcj 16:13 BP 148 / 72 (auto/); bcj 16:13 Pulse 68 MON; Pulse Ox 93% ; bcj 16:28 BP 145 / 73 (auto/); bcj 16:28 Pulse 68 MON; Pulse Ox 93% ; bcj 17:23 BP 144 / 75; Pulse 68; Resp 16; Temp 98.5(TE); Pulse Ox 95% on R/A; Pain 0/10; bcj 13:31 Body Mass Index 27.44 (68.04 kg, 157.48 cm) [facility] MDM: 13:50 Laser Engineer/Pulse Ox/q 15 min VS ordered. ke 13:50 Accucheck ordered. ke 13:50 IV Saline Lock ordered. ke 13:50 Oxygen at 4L/Min NC or Home dosage ordered. ke 13:50 Rhythm Strip to chart ordered. ke 13:51 Acetaminophen Level Ordered. EDMS 13:51 CBC with Diff Ordered. EDMS 13:51 Cardiac Injury Profile Ordered. EDMS 13:51 Drug Eval Toxicology ED Only Ordered. EDMS 13:51 Liver Profile Ordered. EDMS 13:51 MED Profile Ordered. EDMS 13:52 Salicylate Level Ordered. EDMS 13:52 Thyroid Stimulating Hormone Ordered. EDMS 13:52 Troponin Ordered. EDMS 13:52 Urinalysis Ordered. EDMS 13:52 Urine Culture Ordered. EDMS 13:52 Chest, 1 View Ordered. EDMS 13:52 CT Head Without Contrast Ordered. EDMS 13:52 ECG WITH READING ER PHYS+CARDIAG ordered. EDMS 14:30 PT/INR Ordered. EDMS 15:31 Financial registration complete. [email or web address] 15:31 [facility] Payment Agreement was scanned into [employer] and attached to record. [email or web address] 15:38 Acetaminophen Level Reviewed. ke 15:38 CBC with Diff Reviewed. ke 15:38 Liver Profile Reviewed. ke 15:38 MED Profile Reviewed. ke 15:38 Salicylate Level Reviewed. ke 15:38 PT/INR Reviewed. ke 15:38 Cardiac Injury Profile Reviewed. ke 15:38 Thyroid Stimulating Hormone Reviewed. ke 15:38 Troponin Reviewed. ke 15:38 CT Head Without Contrast Reviewed. ke 15:38 Chest, 1 View Reviewed. ke 16:59 PHYSICAL THERAPY EVAL & TREAT ordered. EDMS 16:59 Duplex,carotid (complete) Ordered. EDMS 17:00 Admission / Observation Status ordered. EDMS 17:01 ECHOCARD,DOPPLER/COLOR FLOW ordered. EDMS 17:01 2 GRAM SODIUM DIET ordered. EDMS 17:01 TROPONIN Ordered. EDMS 17:01 RESPIRATORY PANEL Ordered. EDMS 17:11 BLOOD CULTURES Ordered. EDMS 07/24 06:39 T-Sheet-- Draft Copy was scanned into [employer] and attached to record. hs2 12:24 ECG/EKG was scanned into [employer] and attached to record. gb Signatures: Dispatcher [employer] EDTej Gutierrez, RN RN Cary Finley RN Aleyda Arciniega, Reg Reg gb Almas Machado, RN Christiano Mann, TWISTER OPERATOR TWISTER OPERATOR Kristine March, Reg Reg [email or web address] Sarah Rausch, Reg Reg hs2 The chart was reviewed and I authenticate all verbal orders and agree with the evaluation and treatment provided.Attachments: 07/23 15:31 [facility] Payment Agreement [email or web address] 07/24 06:39 T-Sheet-- Draft Copy hs2 12:24 ECG/EKG gb Chart Complete MTDD
--- NOTE | 2016-07-25 19:50 | EDDOCDS ---
Physician Documentation [facility] Name: Jorge Alberto Yip Age: 81 yrs Sex: Male : 1935 Arrival Date: 07/23/2016 Time: 13:18 Bed 9 Private MD: Disposition: 07/23/16 15:58 Hospitalization ordered by Hussein Hadley for Inpatient Admission. Preliminary diagnosis are Transient cerebral ischemic attack, unspecified, Unspecified dementia. - Bed requested for PCU. - Status is Inpatient Admission. dy - Condition is Stable. - Problem is an acute exacerbation. - Symptoms are unchanged. Historical: - Allergies: no known allergies; - Home Meds: 1. Coumadin 5 mg Oral tab 1 tab once daily 2. Zocor 40 mg Oral tab 1 tab once daily 3. Prevacid 30 mg Oral cpDR 1 cap once daily 4. enalapril maleate 5 mg Oral tab 1 tab once daily 5. hydrochlorothiazide 12.5 mg Oral tab 1 tab once daily - PMHx: CVA; Hypertension; GERD; - PSHx: none; - Social history: Smoking status: Patient states former smoker of tobacco. No barriers to communication noted, The patient speaks fluent Burmese, Speaks appropriately for age. - Family history: Not pertinent. - : The pt / caregiver states he / she is on anticoagulants: coumadin. Home medication list is obtained from the patient. - Exposure Risk Screening:: None identified. Vital Signs: 07/23 13:28 BP 151 / 78 (auto/); bcj 13:29 Pulse 66 MON; Pulse Ox 94% ; bcj 13:31 BP 151 / 78; Pulse 65; Resp 20; Temp 100.5(O); Pulse Ox 95% ; Weight 68.04 kg / 150 jlf lbs; Height 5 ft. 2 in. (157.48 cm); Pain 0/10; 13:43 BP 120 / 68 (auto/); bcj 13:43 Pulse 66 MON; Pulse Ox 93% ; bcj 14:10 BP 147 / 73 (auto/); bcj 14:11 Pulse 66 MON; Pulse Ox 92% ; bcj 14:13 BP 138 / 69 (auto/); bcj 14:13 Pulse 66 MON; Pulse Ox 93% ; bcj 14:28 BP 142 / 79 (auto/); bcj 14:28 Pulse 66 MON; Pulse Ox 95% ; bcj 14:43 BP 127 / 67 (auto/); bcj 14:43 Pulse 68 MON; Pulse Ox 93% ; bcj 14:58 BP 127 / 70 (auto/); bcj 14:58 Pulse 68 MON; Pulse Ox 92% ; bcj 15:13 BP 135 / 75 (auto/); bcj 15:13 Pulse 68 MON; Pulse Ox 90% ; bcj 15:28 BP 142 / 78 (auto/); bcj 15:28 Pulse 68 MON; Pulse Ox 95% ; bcj 15:43 BP 142 / 76 (auto/); bcj 15:43 Pulse 68 MON; Pulse Ox 98% ; bcj 15:58 BP 139 / 72 (auto/); bcj 15:58 Pulse 66 MON; Pulse Ox 92% ; bcj 16:13 BP 148 / 72 (auto/); bcj 16:13 Pulse 68 MON; Pulse Ox 93% ; bcj 16:28 BP 145 / 73 (auto/); bcj 16:28 Pulse 68 MON; Pulse Ox 93% ; bcj 17:23 BP 144 / 75; Pulse 68; Resp 16; Temp 98.5(TE); Pulse Ox 95% on R/A; Pain 0/10; bcj 13:31 Body Mass Index 27.44 (68.04 kg, 157.48 cm) [facility] MDM: 13:50 Sales And Service Associate/Pulse Ox/q 15 min VS ordered. ke 13:50 Accucheck ordered. ke 13:50 IV Saline Lock ordered. ke 13:50 Oxygen at 4L/Min NC or Home dosage ordered. ke 13:50 Rhythm Strip to chart ordered. ke 13:51 Acetaminophen Level Ordered. EDMS 13:51 CBC with Diff Ordered. EDMS 13:51 Cardiac Injury Profile Ordered. EDMS 13:51 Drug Eval Toxicology ED Only Ordered. EDMS 13:51 Liver Profile Ordered. EDMS 13:51 MED Profile Ordered. EDMS 13:52 Salicylate Level Ordered. EDMS 13:52 Thyroid Stimulating Hormone Ordered. EDMS 13:52 Troponin Ordered. EDMS 13:52 Urinalysis Ordered. EDMS 13:52 Urine Culture Ordered. EDMS 13:52 Chest, 1 View Ordered. EDMS 13:52 CT Head Without Contrast Ordered. EDMS 13:52 ECG WITH READING ER PHYS+CARDIAG ordered. EDMS 14:30 PT/INR Ordered. EDMS 15:31 Financial registration complete. [email or web address] 15:31 [facility] Payment Agreement was scanned into [employer] and attached to record. [email or web address] 15:38 Acetaminophen Level Reviewed. ke 15:38 CBC with Diff Reviewed. ke 15:38 Liver Profile Reviewed. ke 15:38 MED Profile Reviewed. ke 15:38 Salicylate Level Reviewed. ke 15:38 PT/INR Reviewed. ke 15:38 Cardiac Injury Profile Reviewed. ke 15:38 Thyroid Stimulating Hormone Reviewed. ke 15:38 Troponin Reviewed. ke 15:38 CT Head Without Contrast Reviewed. ke 15:38 Chest, 1 View Reviewed. ke 16:59 PHYSICAL THERAPY EVAL & TREAT ordered. EDMS 16:59 Duplex,carotid (complete) Ordered. EDMS 17:00 Admission / Observation Status ordered. EDMS 17:01 ECHOCARD,DOPPLER/COLOR FLOW ordered. EDMS 17:01 2 GRAM SODIUM DIET ordered. EDMS 17:01 TROPONIN Ordered. EDMS 17:01 RESPIRATORY PANEL Ordered. EDMS 17:11 BLOOD CULTURES Ordered. EDMS 07/24 06:39 T-Sheet-- Draft Copy was scanned into [employer] and attached to record. hs2 12:24 ECG/EKG was scanned into [employer] and attached to record. gb Signatures: Dispatcher [employer] EDTej Gutierrez, RN RN Cary Finley RN Aleyda Arciniega, Reg Reg gb Almas Machado, RN Christiano Mann, THERAPEUTIC MENTOR THERAPEUTIC MENTOR Kristine March, Reg Reg [email or web address] Sarah Rausch, Reg Reg hs2 The chart was reviewed and I authenticate all verbal orders and agree with the evaluation and treatment provided.Attachments: 07/23 15:31 [facility] Payment Agreement [email or web address] 07/24 06:39 T-Sheet-- Draft Copy hs2 12:24 ECG/EKG gb Chart Complete MTDD
[2016-07-26 06:00] VITALS: BP 161/89
[2016-07-26 06:39] LABS: BASO % 0.2 % (0.0-1.0); EOS % 0.5 % (0.0-3.0); LARGE UNSTAINED CELL # 0.2 K/mm3 (0.0-0.4); LARGE UNSTAINED CELL % 3.3 % (0.0-4.0); LYMPH # 0.6 K/mm3 (1.5-4.5); LYMPH % 13.3 % (24.0-44.0); MEAN CORPUSCULAR HEMOGLOBIN 31.7 pg (27.0-33.0); MEAN CORPUSCULAR HGB CONC 33.4 g/dl (32.0-36.5); MEAN CORPUSCULAR VOLUME 94.8 fl (80.0-96.0); MONO # 0.5 K/mm3 (0.0-0.8); MONO % 11.5 % (0.0-5.0); NEUTROPHILS # 3.2 K/mm3 (1.8-7.7); NEUTROPHILS % 71.2 % (36.0-66.0); PLATELET COUNT, AUTOMATED 204 k/mm3 (150-450); WHITE BLOOD COUNT 4.5 K/mm3 (4.0-10.0)
[2016-07-26 06:52] LABS: ANION GAP 9 MEQ/L (8-16); BLOOD UREA NITROGEN 27 MG/DL (7-18); CALCIUM LEVEL 8.6 MG/DL (8.8-10.2); CARBON DIOXIDE LEVEL 22 MEQ/L (21-32); CHLORIDE LEVEL 107 MEQ/L (98-107); CREATININE FOR GFR 1.08 MG/DL (0.70-1.30); GLOMERULAR FILTRATION RATE > 60.0 (>35); GLUCOSE, FASTING 106 MG/DL (83-110); POTASSIUM SERUM 3.7 MEQ/L (3.5-5.1); SODIUM LEVEL 138 MEQ/L (136-145)
[2016-07-26 07:02] LABS: INR 1.96
[2016-07-26] MEDS ORDERED: OSEL75CA PO (08:28)
[2016-07-26] MEDS ORDERED: OSELTAMIVIR PHOSPHATE 75 MG CAP (TAMIFLU) PO SCH (09:00)
[2016-07-26] MEDS: PANTOPRAZOLE 20 MG TAB PO SCH (09:09)
[2016-07-26 09:10] VITALS: BP 161/89
[2016-07-26] MEDS: ENALAPRIL MALEATE 5 MG TAB PO SCH (09:10)
[2016-07-26] MEDS: SIMVASTATIN 40 MG TAB PO SCH (09:10)
--- NOTE | 2016-07-26 16:34 | DSES ---
DATE OF ADMISSION: 07/23/2016 DATE OF DISCHARGE: 07/26/2016 SPECIALISTS INVOLVED IN CARE: Include Dr. Ashley. No complications during the stay. No procedures performed during his stay. DISCHARGE DIAGNOSES: 1. Influenza A. 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 3. Near syncopal event. 4. Hypertension. 5. Dementia. SUMMARY OF HIS PRESENTATION: This is an 81-year-old who presented with a near syncopal event. He was admitted to the hospitalist service and found to have Influenza A and suspected viral infection. During the course of his workup, an echocardiogram was ordered which showed normal left ventricular size wall thickness and left ventricular ejection fraction. 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 The patient had moderate tricuspid regurgitation, moderate pulmonary hypertension. The patient was seen in consultation by Dr. Ashley, and after that discussion, the patient and family have elected to avoid any invasive intervention. On the day of discharge, he is feeling well. He has no complaints of pain, chest pain, or shortness of breath. He has been tolerating a diet and feels ready to go home. Family is engaged in the plan. PHYSICAL EXAMINATION: Temperature is 98.8, pulse 94, respiratory rate 18, blood pressure 161/89, 95% on room air. Breathing is symmetrical and rested. Heart is in a regular rate and rhythm. Abdomen is soft, doughy, nontender. LABORATORY DATA: White cell count 4.5, hemoglobin 11.7, BUN 27, creatinine 1.08. DISCHARGE INSTRUCTIONS: Include the followin. Followup with Dr. Duncan or Jacob Hunter within one week. 2. Activity and diet as tolerated. DISCHARGE MEDICATIONS: Continue: - Tamiflu 75 mg by mouth twice a day for eight more doses - Tylenol as needed for pain - Enalapril 5 mg by mouth daily - Prevacid 30 mg by mouth daily - simvastatin 40 mg by mouth daily - Coumadin 5 mg by mouth daily He was given a prescription for prothrombin time (PT)/international normalized ratio (INR) to be done on 07/28/2016 at Jacob Hunter's office. At this point, we are discontinuing his hydrochlorothiazide based on Dr. Ashley's suggestion. I did update Dr. Duncan at the time of discharge about the patient's plans.
== END 2016-07-26 10:20 | disposition home or self-care (01) ==
LOC: M ED 13:18 → M ED INP 16:53 → M PCU 18:45 → M MS5PR 07-25 18:04
PROVIDERS: ADMIT Internal Medicine; ATTEND Internal Medicine
DX: J11.1 Influenza due to unidentified influenza virus with other respiratory manifestations (principal); I11.9 Hypertensive heart disease without heart failure; D15.1 Benign neoplasm of heart; Z86.73 Personal history of transient ischemic attack (TIA), and cerebral infarction without residual deficits; F03.90 Unspecified dementia, unspecified severity, without behavioral disturbance, psychotic disturbance, mood disturbance, and anxiety; Z79.01 Long term (current) use of anticoagulants; Z79.899 Other long term (current) drug therapy
CPT/HCPCS: 36415; 70450; 71010; 80048; 80076; 80306; 81001; 82550; 82553; 83735; 84443; 84484; 85025; 85610; 87040; 87086; 87486; 87581; 87633; 87798; 93005; 93041; 93306; 93880; 97161; 99285; G0378; G0480; G8978; G8979; G8980

== ENCOUNTER → 2016-07-28 | Outpatient (REF) | payer MEDICARE, MEDICAID ==
[~2016-07-28] MED LIST: ACET50TAOT PO; COUM1TAB17 PO; ENAL5TAB PO; HYDR12CA PO; LANS30CA PO; OSEL75CA PO; ZOCO40TA PO
[2016-07-28 20:20] LABS: INR 1.98
== END ==
LOC: M LABDRWAD 19:26
PROVIDERS: ATTEND Nurse Practitioner Family
DX: Z51.81 Encounter for therapeutic drug level monitoring (principal); Z79.01 Long term (current) use of anticoagulants

== ENCOUNTER → 2017-01-03 | Outpatient (CLI) | payer MEDICARE, MEDICAID ==
--- NOTE | 2017-01-03 16:59 | REP ---
CHEST, TWO VIEWS: Two views of the chest were performed and compared to prior study 10/23/2012 and 07/23/2016. There is no acute infiltrate. There is a calcified granuloma in the right lower lobe inferiorly. The heart is not significantly enlarged. There is calcification and tortuosity of the thoracic aorta. The mediastinal silhouette is unchanged. There is a large hiatal hernia. There are mild degenerative changes of the spine. IMPRESSION: Chronic findings without evidence of acute pulmonary disease. Signed by Onofre Silver MD 01/03/2017 07:49 P
[2017-01-03 19:39] LABS: ANION GAP 6 MEQ/L (8-16); BLOOD UREA NITROGEN 18 MG/DL (7-18); CALCIUM LEVEL 8.2 MG/DL (8.8-10.2); CARBON DIOXIDE LEVEL 25 MEQ/L (21-32); CHLORIDE LEVEL 113 MEQ/L (98-107); GLOMERULAR FILTRATION RATE > 60.0 (>35); GLUCOSE, FASTING 127 MG/DL (83-110); POTASSIUM SERUM 3.9 MEQ/L (3.5-5.1); SODIUM LEVEL 144 MEQ/L (136-145)
== END ==
LOC: M ADAMS 15:09
PROVIDERS: ATTEND Nurse Practitioner Family
DX: R60.9 Edema, unspecified (principal)

== ENCOUNTER → 2017-01-10 | Outpatient (REF) | payer MEDICARE, MEDICAID ==
[2017-01-10 20:32] LABS: CALCIUM LEVEL 8.9 MG/DL (8.8-10.2); CREATININE FOR GFR 1.24 MG/DL (0.70-1.30); GLOMERULAR FILTRATION RATE 59.7 (>35); POTASSIUM SERUM 4.3 MEQ/L (3.5-5.1)
== END ==
LOC: M LABDRWAD 09:04
PROVIDERS: ATTEND Nurse Practitioner Family
DX: R60.9 Edema, unspecified (principal)

== ENCOUNTER → 2017-02-06 | Outpatient (REF) | payer MEDICARE, MEDICAID ==
[2017-02-06 20:26] LABS: ANION GAP 6 MEQ/L (8-16); BLOOD UREA NITROGEN 22 MG/DL (7-18); CALCIUM LEVEL 8.6 MG/DL (8.8-10.2); CARBON DIOXIDE LEVEL 31 MEQ/L (21-32); CHLORIDE LEVEL 101 MEQ/L (98-107); CREATININE FOR GFR 1.21 MG/DL (0.70-1.30); GLOMERULAR FILTRATION RATE > 60.0 (>35); GLUCOSE, FASTING 97 MG/DL (83-110); POTASSIUM SERUM 4.3 MEQ/L (3.5-5.1); SODIUM LEVEL 138 MEQ/L (136-145)
== END ==
LOC: M LABDRWAD 09:41
PROVIDERS: ATTEND Nurse Practitioner Family
DX: R60.9 Edema, unspecified (principal)